=== PATIENT | male | born 1960 | race Caucasian/White ===

== ENCOUNTER 2017-10-11 13:58 | Emergency (ER) | payer OTHER ==
[~2017-10-11] VITALS: Ht 167.6 cm; Wt 65.9 kg
[~2017-10-11 13:58] MED LIST: ALBU0.63 NEB; AMLO5TAB2 PO; BP med PO; DICL75TA PO; VENTAER INH
[2017-10-11 14:07] VITALS: BP 179/102; PULSE 67; RESP 16; TEMP 98.7; O2SAT 94
--- NOTE | 2017-10-11 14:46 | RADRPT ---
EXAM DATE/TIME: 10/11/2017 14:33 [facility] COMPARISON: CHEST PA & LAT, July 06, 2015, 20:21. INDICATIONS : Short of breath. MEDICAL HISTORY : 2 Pulmonary embolisms, COPD, arthritis, kidney problems. SURGICAL HISTORY : None. ENCOUNTER: Initial ACUITY: 3 days PAIN SCORE: 8/10 LOCATION: Bilateral chest FINDINGS: PA and lateral views of the chest demonstrate the lungs to be symmetrically aerated without evidence of mass, infiltrate or effusion. The cardiomediastinal contours are unremarkable. Osseous structure s are intact. CONCLUSION: No acute disease. Jason Connor MD FACR on October 11, 2017 at 14:42 Board Certified Radiologist. This report was verified electronically.
[2017-10-11 15:06] LABS: AUTOMATED NEUTROPHIL # 2.9 TH/MM3 (1.8-7.7); BASOPHIL % 0.8 % (0.0-2.0); EOSINOPHIL # 0.1 TH/MM3 (0-0.4); EOSINOPHIL % 1.6 % (0.0-4.0); HEMOGLOBIN 17.5 GM/DL (13.0-17.0); LYMPH % 29.7 % (9.0-44.0); LYMPHOCYTE # 1.6 TH/MM3 (1.0-4.8); MEAN CELL VOLUME 94.8 FL (80.0-100.0); MEAN CORPUSCULAR HEMOGLOBIN 33.2 PG (27.0-34.0); MEAN PLATELET VOLUME 9.4 FL (7.0-11.0); MONO % 13.2 % (0.0-8.0); MONOCYTE # 0.7 TH/MM3 (0-0.9); NEUT % 54.7 % (16.0-70.0); PLATELET COUNT 159 TH/MM3 (150-450); RED BLOOD COUNT 5.27 MIL/MM3 (4.50-5.90); RED CELL DISTRIBUTION WIDTH 14.5 % (11.6-17.2); WHITE BLOOD COUNT 5.3 TH/MM3 (4.0-11.0)
[2017-10-11 15:09] LABS: BLOOD, URINE NEG (NEG); GLUCOSE,URINE NEG (NEG); KETONE, URINE TRACE mg/dL (NEG); MUCUS URINE MOD /lpf (OCC); NITRITE,URINE NEG (NEG); SQUAMOUS EPITHELIAL CELL URINE <1 /hpf (0-5); URINE LEUKOCYTE ESTERASE NEG (NEG)
[2017-10-11 15:11] LABS: URINE COLOR ORANGE (YELLW/STRAW)
[2017-10-11 15:12] LABS: BILIRUBIN, URINE NEG (NEG)
[2017-10-11 15:17] LABS: INTERNATIONAL NORMALIZED RATIO 1.1 RATIO; PROTHROMBIN TIME - PATIENT 11.1 SEC (9.8-11.6)
[2017-10-11 15:28] LABS: ALBUMIN 4.2 GM/DL (3.4-5.0); ALT (GPT) 426 U/L (12-78); AST (GOT) 322 U/L (15-37); BLOOD UREA NITROGEN 22 MG/DL (7-18); CHLORIDE 99 MEQ/L (98-107); CREATININE 1.51 MG/DL (0.60-1.30); GLOMERULAR FILTRATION RATE 48 ML/MIN (>89); GLUCOSE,RANDOM 107 MG/DL (74-106); LIPASE 143 U/L (73-393); SODIUM (NA) 135 MEQ/L (136-145)
[2017-10-11 15:32] LABS: ALKALINE PHOSPHATASE 182 U/L (45-117); TOTAL BILIRUBIN ADULT 2.7 MG/DL (0.2-1.0); TOTAL PROTEIN 8.5 GM/DL (6.4-8.2); TROPONIN I LESS THAN 0.02 NG/ML (0.02-0.05)
[2017-10-11] MEDS ORDERED: ASPI-516 CHEW (15:39)
[2017-10-11] MEDS ORDERED: PROZ40CA PO (15:39)
[2017-10-11] MEDS ORDERED: BUSP15TA PO (15:39)
[2017-10-11] MEDS ORDERED: AMLO10TA2 PO (15:39)
[2017-10-11] MEDS ORDERED: OMEP20TA93 PO (15:39)
[2017-10-11] MEDS ORDERED: GABA300C5 PO (15:39)
[2017-10-11 15:49] VITALS: BP 175/109; PULSE 60; RESP 20; O2SAT 98
[2017-10-11] MEDS ORDERED: PANT20TA2 PO (15:51)
--- NOTE | 2017-10-11 15:51 | PD ---
HPI Chief Complaint: Abdominal Pain Time Seen by Provider: 15:39 Travel History International Travel<30 days: No Contact w/Intl Traveler<30days: No Traveled to known affect area: No History of Present Illness HPI 57-year-old male with a history of COPD presents to emergency department complaining of back pain that started Monday. Patient states that this pain started Monday night and is located in the middle of his back near the lower thoracic upper lumbar region. Patient states that he has occasional sharp pain without radiation. States he has also had multiple episodes of nausea with nonbloody vomiting. He denies cardiac history but states that he thinks he has a kidney problem. Denies dysuria or hematuria. States that he had been drinking heavily up until Monday when he 'self detoxed'. States he had significant withdrawal symptoms to include tremors, nausea, vomiting. Patient says that he has a history of appendectomy but otherwise no abdominal surgeries. Patient has history of pulmonary embolism in 2016 which required treatment with Eliquis for 4 months. At this point he denies shortness of breath or chest pain. Denies significant abdominal pain. States he is noncompliant with [facility]. Says is he is currently homeless. PFSH Past Medical History Hx Anticoagulant Therapy: No Arthritis: No Asthma: No Autoimmune Disease: No Blood Disorders: No Anxiety: Yes Depression: No Heart Rhythm Problems: No Cancer: No Cardiovascular Problems: Yes (HTN) High Cholesterol: No Chemotherapy: No Chest Pain: No Congestive Heart Failure: No COPD: Yes Cerebrovascular Accident: Yes (TIA) Diabetes: No Diminished Hearing: No Endocrine: No GERD: No Glaucoma: No Genitourinary: No Headaches: No Hepatitis: No Hiatal Hernia: No Hypertension: Yes Immune Disorder: No Kidney Stones: No Musculoskeletal: No Neurologic: No Psychiatric: No Reproductive: No Respiratory: Yes (PE) Immunizations Current: No Migraines: No Myocardial Infarction: No Radiation Therapy: No Renal Failure: Yes Seizures: No Sickle Cell Disease: No Sleep Apnea: No Thyroid Disease: No Ulcer: No Influenza Vaccination: No Past Surgical History Abdominal Surgery: Yes (APPENDECTOMY) AICD: No Appendectomy: Yes Arteriovenous Shunt: No Cardiac Surgery: No Cholecystectomy: No Ear Surgery: No Endocrine Surgery: No Eye Surgery: No Genitourinary Surgery: No Gynecologic Surgery: No Insulin Pump: No Joint Replacement: No Oral Surgery: No Pacemaker: No Thoracic Surgery: No Other Surgery: Yes Social History Alcohol Use: Yes (DAILY, STATES LAST DRINK WAS 10/09/17) Tobacco Use: Yes (10/12 PPD) Substance Use: Yes (MARIJUANA OCCASIONALLY) Allergies-Medications (Allergen,Severity, Reaction): Coded Allergies: No Known Allergies (Verified Adverse Reaction, Unknown, 10/11/17) Reported Meds & Prescriptions Reported Meds & Active Scripts Active Reported Pantoprazole (Pantoprazole Sodium) 20 Mg Tab 20 Mg PO BID Aspirin 81 Mg Chew 81 Mg CHEW DAILY Prozac (Fluoxetine HCl) 40 Mg Cap 40 Mg PO DAILY Buspirone (Buspirone HCl) 15 Mg Tab 15 Mg PO TID Gabapentin 300 Mg Cap 300 Mg PO DAILY Amlodipine (Amlodipine Besylate) 10 Mg Tab 10 Mg PO DAILY Albuterol Neb (Albuterol Sulfate) 0.63 Mg/3 Ml Neb 0.63 Mg NEB Q6HR NEB PRN Ventolin Hfa 18 GM Inh (Albuterol Sulfate) 90 Mcg/Act Aer 2 Puff INH TID Review of Systems Except as stated in HPI: all other systems reviewed are Neg Physical Exam Narrative GENERAL: Well-nourished in no apparent distress, sitting comfortably in bed SKIN: Focused skin assessment warm/dry. HEAD: Atraumatic. Normocephalic. EYES: Pupils equal and round. No scleral icterus. No injection or drainage. ENT: No nasal bleeding or discharge. Mucous membranes pink and moist. NECK: Trachea midline. No JVD. No lymphadenopathy CARDIOVASCULAR: Regular rate and rhythm. No murmur appreciated. RESPIRATORY: No accessory muscle use. Clear to auscultation. Breath sounds equal bilaterally. GASTROINTESTINAL: Abdomen soft, non-tender, nondistended. Mildly TTP right upper abdomen MUSCULOSKELETAL: No obvious deformities. No clubbing. No cyanosis. No edema. Mild CVA tenderness bilateral, mild TTP to light touch as well NEUROLOGICAL: Awake and alert. No obvious cranial nerve deficits. Motor grossly within normal limits. Normal speech. PSYCHIATRIC: Appropriate mood and affect; insight and judgment normal. Data Data Last Documented VS Vital Signs Date Time Temp Pulse Resp B/P (MAP) Pulse Ox O2 Delivery O2 Flow Rate FiO2 10/11/17 17:23 10/11/17 15:49 60 20 98 Room Air 10/11/17 14:07 98.7 Orders Orders Complete Blood Count With Diff (10/11/17 14:22) Comprehensive Metabolic Panel (10/11/17 14:22) Lipase (10/11/17 14:22) Prothrombin Time / Inr (Pt) (10/11/17 14:22) Act Partial Throm Time (Ptt) (10/11/17 14:22) Urinalysis - C+S If Indicated (10/11/17 14:22) Electrocardiogram (10/11/17 14:22) Chest, Pa & Lat (10/11/17 ) Creatine Kinase (Cpk) (10/11/17 14:22) Troponin I (10/11/17 14:22) Alcohol (Ethanol) (10/11/17 14:22) Us Abdomen Gallbladder (10/11/17 ) Ed Discharge Order (10/11/17 17:16) Labs Laboratory Tests Test 10/11/17 14:29 10/11/17 14:41 Urine Color ORANGE Urine Turbidity CLEAR Urine pH 7.0 Urine Specific [place] 1.031 Urine Protein 30 mg/dL Urine Glucose (UA) NEG mg/dL Urine Ketones TRACE mg/dL Urine Occult Blood NEG Urine Nitrite NEG Urine Bilirubin NEG Urine Urobilinogen GREATER THAN 12.0 MG/DL Urine Leukocyte Esterase NEG Urine RBC 1 /hpf Urine WBC 1 /hpf Urine Squamous Epithelial Cells <1 /hpf Urine Mucus MOD /lpf Microscopic Urinalysis Comment CULT NOT INDICATED White Blood Count 5.3 TH/MM3 Red Blood Count 5.27 MIL/MM3 Hemoglobin 17.5 GM/DL Hematocrit 50.0 % Mean Corpuscular Volume 94.8 FL Mean Corpuscular Hemoglobin 33.2 PG Mean Corpuscular Hemoglobin Concent 35.0 % Red Cell Distribution Width 14.5 % Platelet Count 159 TH/MM3 Mean Platelet Volume 9.4 FL Neutrophils (%) (Auto) 54.7 % Lymphocytes (%) (Auto) 29.7 % Monocytes (%) (Auto) 13.2 % Eosinophils (%) (Auto) 1.6 % Basophils (%) (Auto) 0.8 % Neutrophils # (Auto) 2.9 TH/MM3 Lymphocytes # (Auto) 1.6 TH/MM3 Monocytes # (Auto) 0.7 TH/MM3 Eosinophils # (Auto) 0.1 TH/MM3 Basophils # (Auto) 0.0 TH/MM3 CBC Comment DIFF FINAL Differential Comment Prothrombin Time 11.1 SEC Prothromb Time International Ratio 1.1 RATIO Activated Partial Thromboplast Time 27.0 SEC Blood Urea Nitrogen 22 MG/DL Creatinine 1.51 MG/DL Random Glucose 107 MG/DL Total Protein 8.5 GM/DL Albumin 4.2 GM/DL Calcium Level 9.0 MG/DL Alkaline Phosphatase 182 U/L Aspartate Amino Transf (AST/SGOT) 322 U/L Alanine Aminotransferase (ALT/SGPT) 426 U/L Total Bilirubin 2.7 MG/DL Sodium Level 135 MEQ/L Potassium Level 3.8 MEQ/L Chloride Level 99 MEQ/L Carbon Dioxide Level 28.0 MEQ/L Anion Gap 8 MEQ/L Estimat Glomerular Filtration Rate 48 ML/MIN Total Creatine Kinase 110 U/L Troponin I LESS THAN 0.02 NG/ML Lipase 143 U/L Ethyl Alcohol Level LESS THAN 3 MG/DL MDM Medical Decision Making Medical Screen Exam Complete: Yes Emergency Medical Condition: Yes Differential Diagnosis Pyelonephritis, nephrolithiasis, pulmonary embolism, acute liver failure, hepatitis Narrative Course 57-year-old male with a history of COPD presents to emergency department complaining of back pain that started Monday. Patient states that this pain started Monday night and is located in the middle of his back near the lower thoracic upper lumbar region. Patient states that he has occasional sharp pain without radiation. States he has also had multiple episodes of nausea with nonbloody vomiting. He denies cardiac history but states that he thinks he has a kidney problem. Denies dysuria or hematuria. States that he had been drinking heavily up until Monday when he 'self detoxed'. States he had significant withdrawal symptoms to include tremors, nausea, vomiting. Patient says that he has a history of appendectomy but otherwise no abdominal surgeries. Patient has history of pulmonary embolism in 2016 which required treatment with Eliquis for 4 months. At this point he denies shortness of breath or chest pain. Denies significant abdominal pain. States he is noncompliant with medications that are [facility] by [facility]. Says is he is currently homeless. Vital Signs Date Time Temp Pulse Resp B/P (MAP) Pulse Ox O2 Delivery O2 Flow Rate FiO2 10/11/17 17:23 10/11/17 15:49 60 20 175/109 (131) 98 Room Air 10/11/17 14:07 98.7 67 16 179/102 (127) 94 Room Air CBC & BMP Diagram 10/11/17 14:41 Total Protein 8.5 H, Albumin 4.2, Calcium Level 9.0, Alkaline Phosphatase 182 H , Aspartate Amino Transf (AST/SGOT) 322 H, Alanine Aminotransferase (ALT/SGPT) 426 H, Total Bilirubin 2.7 H Last Impressions Gall Bladder Ultrasound 10/11/17 0000 Signed Impressions: Service Date/Time: Wednesday, October 11, 2017 16:10 - CONCLUSION: No gallstones. Nonobstructing 3 mm renal stone. Jason Connor MD FACR Chest X-Ray 10/11/17 0000 Signed Impressions: Service Date/Time: Wednesday, October 11, 2017 14:33 - CONCLUSION: No acute disease. Jason Connor MD FACR Patient states that he started drinking on Monday however, because of the lab results, I question his story. Patient demonstrates no acute process. I explained the likely diagnosis to patient. Because of the nausea he previously described, I suspect a muscle strain in the lower back. Patient will be discharged and advised to stop alcohol consumption to reduce his symptoms. Increase fluid intake. Advised to return to the ED for worsening or persistent symptoms. Diagnosis Primary Impression: Nephrolithiasis Additional Impression: Gastritis Qualified Codes: K29.20 - Alcoholic gastritis without bleeding Referrals: [facility] Additional Instructions: If your symptoms persist or worsen, return to the emergency department. Follow up with your PCP within 2-3 days. [facility]. Avoid alcohol as this will worsen your symptoms. Disposition: 01 DISCHARGE HOME Condition: Stable Lor Bello Oct 11, 2017 15:51
--- NOTE | 2017-10-11 16:45 | RADRPT ---
EXAM DATE/TIME: 10/11/2017 16:10 [facility] COMPARISON: No previous studies available for comparison. INDICATIONS : Nausea/Vomiting. MEDICAL HISTORY : Hypertension. Chronic obstructive pulmonary disease. Transient ischemic attack. Pulmonary embolism. Heartburn. Anxiety. Renal failure. SURGICAL HISTORY : Appendectomy. ENCOUNTER: Initial ACUITY: 3 days PAIN SCORE: 3/10 LOCATION: Right upper quadrant MEASUREMENTS: LIVER: 11.6 cm length COMMON DUCT: 5 mm RIGHT KIDNEY: 10.0 x 4.1 x 4.9 cm FINDINGS: LIVER: Normal echotexture without focal lesion or ductal dilatation. COMMON DUCT: No intraluminal mass or stone visualized. GALLBLADDER: Contains no stones, demonstrates no wall thickening or pericholecystic fluid. PANCREAS: The visualized portions are within normal limits. RIGHT KIDNEY: 3 mm stone without obstruction. CONCLUSION: No gallstones. Nonobstructing 3 mm renal stone. Jason Connor MD FACR on October 11, 2017 at 16:42 Board Certified Radiologist. This report was verified electronically.
--- NOTE | 2017-10-11 19:22 | PD ---
Data Data Last Documented VS Vital Signs Date Time Temp Pulse Resp B/P (MAP) Pulse Ox O2 Delivery O2 Flow Rate FiO2 10/11/17 17:23 10/11/17 15:49 60 20 98 Room Air 10/11/17 14:07 98.7 Orders Orders Complete Blood Count With Diff (10/11/17 14:22) Comprehensive Metabolic Panel (10/11/17 14:22) Lipase (10/11/17 14:22) Prothrombin Time / Inr (Pt) (10/11/17 14:22) Act Partial Throm Time (Ptt) (10/11/17 14:22) Urinalysis - C+S If Indicated (10/11/17 14:22) Electrocardiogram (10/11/17 14:22) Chest, Pa & Lat (10/11/17 ) Creatine Kinase (Cpk) (10/11/17 14:22) Troponin I (10/11/17 14:22) Alcohol (Ethanol) (10/11/17 14:22) Us Abdomen Gallbladder (10/11/17 ) Ed Discharge Order (10/11/17 17:16) Labs Laboratory Tests Test 10/11/17 14:29 10/11/17 14:41 Urine Color ORANGE Urine Turbidity CLEAR Urine pH 7.0 Urine Specific [place] 1.031 Urine Protein 30 mg/dL Urine Glucose (UA) NEG mg/dL Urine Ketones TRACE mg/dL Urine Occult Blood NEG Urine Nitrite NEG Urine Bilirubin NEG Urine Urobilinogen GREATER THAN 12.0 MG/DL Urine Leukocyte Esterase NEG Urine RBC 1 /hpf Urine WBC 1 /hpf Urine Squamous Epithelial Cells <1 /hpf Urine Mucus MOD /lpf Microscopic Urinalysis Comment CULT NOT INDICATED White Blood Count 5.3 TH/MM3 Red Blood Count 5.27 MIL/MM3 Hemoglobin 17.5 GM/DL Hematocrit 50.0 % Mean Corpuscular Volume 94.8 FL Mean Corpuscular Hemoglobin 33.2 PG Mean Corpuscular Hemoglobin Concent 35.0 % Red Cell Distribution Width 14.5 % Platelet Count 159 TH/MM3 Mean Platelet Volume 9.4 FL Neutrophils (%) (Auto) 54.7 % Lymphocytes (%) (Auto) 29.7 % Monocytes (%) (Auto) 13.2 % Eosinophils (%) (Auto) 1.6 % Basophils (%) (Auto) 0.8 % Neutrophils # (Auto) 2.9 TH/MM3 Lymphocytes # (Auto) 1.6 TH/MM3 Monocytes # (Auto) 0.7 TH/MM3 Eosinophils # (Auto) 0.1 TH/MM3 Basophils # (Auto) 0.0 TH/MM3 CBC Comment DIFF FINAL Differential Comment Prothrombin Time 11.1 SEC Prothromb Time International Ratio 1.1 RATIO Activated Partial Thromboplast Time 27.0 SEC Blood Urea Nitrogen 22 MG/DL Creatinine 1.51 MG/DL Random Glucose 107 MG/DL Total Protein 8.5 GM/DL Albumin 4.2 GM/DL Calcium Level 9.0 MG/DL Alkaline Phosphatase 182 U/L Aspartate Amino Transf (AST/SGOT) 322 U/L Alanine Aminotransferase (ALT/SGPT) 426 U/L Total Bilirubin 2.7 MG/DL Sodium Level 135 MEQ/L Potassium Level 3.8 MEQ/L Chloride Level 99 MEQ/L Carbon Dioxide Level 28.0 MEQ/L Anion Gap 8 MEQ/L Estimat Glomerular Filtration Rate 48 ML/MIN Total Creatine Kinase 110 U/L Troponin I LESS THAN 0.02 NG/ML Lipase 143 U/L Ethyl Alcohol Level LESS THAN 3 MG/DL MDM Supervised Visit with [place]: Yes Narrative Course The history, exam, and medical decision-making in the associated mid-level provider note were completed with my assistance. I reviewed and agree with the findings presented. I attest that I had a [id number] encounter with the patient on the same day, and personally performed and documented my assessment and findings in the medical record. *My assessment and Findings: 57-year-old man, abdominal pain, history of alcoholic daily on-call use, quit 3 days ago. He with abdominal pain. Looks well. Liver enzymes are more elevated. Right upper quadrant ultrasounds overall unremarkable. Likely alcoholic hepatitis. Looks otherwise well. Recommend supportive treatment. Diagnosis Primary Impression: Nephrolithiasis Additional Impression: Gastritis Referrals: [facility] Patient Instructions: General Instructions, Gastritis (ED), Flank Pain (ED) Departure Forms: Tests/Procedures Additional Instruction: If your symptoms persist or worsen, return to the emergency department. Follow up with your PCP within 2-3 days. [facility]. Avoid alcohol as this will worsen your symptoms. Disposition: 01 DISCHARGE HOME Condition: Stable Ethan Ruiz MD Oct 11, 2017 19:22
--- NOTE | 2017-10-13 23:49 | EKG ---
Date Performed: 10/11/2017 Time Performed: 15:32:20 PTAGE: 57 years EKG: Sinus rhythm SEPTAL MYOCARDIAL INFARCTION ABNORMAL ECG PREVIOUS TRACING : 09/14/2016 14.21 DOCTOR: Emilie Tate Interpretating Date/Time 10/13/2017 23:48:16
== END 2017-10-11 17:24 | disposition home or self-care (01) ==
LOC: NEPC 13:58
DX: N20.0 Calculus of kidney (principal); K29.70 Gastritis, unspecified, without bleeding; R94.31 Abnormal electrocardiogram [ECG] [EKG]; R11.2 Nausea with vomiting, unspecified; I10 Essential (primary) hypertension; J44.9 Chronic obstructive pulmonary disease, unspecified; Z86.73 Personal history of transient ischemic attack (TIA), and cerebral infarction without residual deficits; Z72.0 Tobacco use
CPT/HCPCS: 71046; 76705; 80053; 80307; 81001; 82550; 83690; 84484; 85025; 85610; 85730; 93005

== ENCOUNTER 2017-11-28 15:42 | Inpatient (IN) | payer OTHER ==
[2017-11-28] VITALS (7 sets, daily range): BP systolic 18–198; BP diastolic 81–111; PULSE 64–76; RESP 16–20; TEMP 98–98.4; O2SAT 96–98
[~2017-11-28] VITALS: Ht 167.6 cm; Wt 66.3 kg
[~2017-11-28 15:42] MED LIST changes: +AMLO10TA2 PO; -AMLO5TAB2 PO; +ASPI-516 CHEW; -BP med PO; +BUSP15TA PO; -DICL75TA PO; +GABA300C5 PO; +PANT20TA2 PO; +PROZ40CA PO
--- NOTE | 2017-11-28 15:58 | PD ---
HPI Chief Complaint: Hypertension Time Seen by Provider: 15:54 Travel History International Travel<30 days: No Contact w/Intl Traveler<30days: No Traveled to known affect area: No History of Present Illness HPI 57-year-old male patient with history of hypertension, PE, presents to the ER today because he states that he has not taken his blood pressure medications in several days, and states that [facility] to [facility] today, and they took a routine blood pressure and found that it was elevated. He states that he did have an episode of palpitations and chest discomfort lasting several minutes earlier today but it went away on its own. He denies any chest pains, shortness of breath, or any other issues. He thinks that the [facility] overreact[facility]. Modifying Factors: None Associated Signs & Symptoms: Elevated blood pressure Risk Factors: hypertension, not taking meds PFSH Past Medical History Hx Anticoagulant Therapy: No Arthritis: No Asthma: No Autoimmune Disease: No Blood Disorders: No Anxiety: Yes Depression: Yes Heart Rhythm Problems: No Cancer: No Cardiovascular Problems: Yes High Cholesterol: No Chemotherapy: No Chest Pain: No Congestive Heart Failure: No COPD: Yes Cerebrovascular Accident: Yes (TIA) Diabetes: No Diminished Hearing: No Endocrine: No GERD: No Glaucoma: No Genitourinary: No Headaches: No Hepatitis: No Hiatal Hernia: No Hypertension: Yes Immune Disorder: No Kidney Stones: No Musculoskeletal: No Neurologic: No Psychiatric: No Reproductive: No Respiratory: Yes (PE) Immunizations Current: No Migraines: No Myocardial Infarction: No Radiation Therapy: No Renal Failure: Yes Seizures: No Sickle Cell Disease: No Sleep Apnea: No Thyroid Disease: No Ulcer: No Influenza Vaccination: No ?: Not Past Surgical History Abdominal Surgery: Yes (APPENDECTOMY) AICD: No Appendectomy: Yes Arteriovenous Shunt: No Cardiac Surgery: No Cholecystectomy: No Ear Surgery: No Endocrine Surgery: No Eye Surgery: No Genitourinary Surgery: No Gynecologic Surgery: No Insulin Pump: No Joint Replacement: No Oral Surgery: No Pacemaker: No Thoracic Surgery: No Other Surgery: Yes Social History Alcohol Use: Yes (DAILY, STATES LAST DRINK WAS 10/09/17) Tobacco Use: Yes (10/12 PPD) Substance Use: Yes (MARIJUANA OCCASIONALLY) Allergies-Medications (Allergen,Severity, Reaction): Coded Allergies: No Known Allergies (Verified Adverse Reaction, Unknown, 11/28/17) Reported Meds & Prescriptions Reported Meds & Active Scripts Active Reported Pantoprazole (Pantoprazole Sodium) 20 Mg Tab 20 Mg PO BID Aspirin 81 Mg Chew 81 Mg CHEW DAILY Buspirone (Buspirone HCl) 15 Mg Tab 15 Mg PO TID Amlodipine (Amlodipine Besylate) 10 Mg Tab 10 Mg PO DAILY Albuterol Neb (Albuterol Sulfate) 0.63 Mg/3 Ml Neb 0.63 Mg NEB Q6HR NEB PRN Ventolin Hfa 18 GM Inh (Albuterol Sulfate) 90 Mcg/Act Aer 2 Puff INH TID Review of Systems Except as stated in HPI: all other systems reviewed are Neg Physical Exam Narrative GENERAL: Well-developed middle-age male patient currently in mild distress. Awake and oriented 3. SKIN: Focused skin assessment warm/dry. HEAD: Atraumatic. Normocephalic. EYES: Pupils equal and round. No scleral icterus. No injection or drainage. ENT: No nasal bleeding or discharge. Mucous membranes pink and moist. NECK: Trachea midline. No JVD. CARDIOVASCULAR: Regular rate and rhythm. No murmur appreciated. RESPIRATORY: No accessory muscle use. Clear to auscultation. Breath sounds equal bilaterally. GASTROINTESTINAL: Abdomen soft, non-tender, nondistended. Hepatic and splenic margins not palpable. MUSCULOSKELETAL: No obvious deformities. No clubbing. No cyanosis. No edema. NEUROLOGICAL: Awake and alert. No obvious cranial nerve deficits. Motor grossly within normal limits. Normal speech. PSYCHIATRIC: Appropriate mood and affect; insight and judgment normal. Data Data Last Documented VS Vital Signs Date Time Temp Pulse Resp B/P (MAP) Pulse Ox O2 Delivery O2 Flow Rate FiO2 11/28/17 16:50 70 18 189/111 (137) 97 Room Air 11/28/17 15:45 98.4 Orders Orders Electrocardiogram (11/28/17 15:54) Basic Metabolic Panel (Bmp) (11/28/17 15:54) Ckmb (Isoenzyme) Profile (11/28/17 15:54) Complete Blood Count With Diff (11/28/17 15:54) Magnesium (Mg) (11/28/17 15:54) Prothrombin Time / Inr (Pt) (11/28/17 15:54) Act Partial Throm Time (Ptt) (11/28/17 15:54) Troponin I (11/28/17 15:54) Chest, Single Ap (11/28/17 15:54) Ecg Monitoring (11/28/17 15:54) Bilateral Bp Monitoring (11/28/17 15:54) Iv Access Insert/Monitor (11/28/17 15:54) Oximetry (11/28/17 15:54) Oxygen Administration (11/28/17 15:54) Sodium Chloride 0.9% Flush (Ns Flush) (11/28/17 16:00) Amlodipine (Norvasc) (11/28/17 16:00) CKMB (11/28/17 16:05) CKMB% (11/28/17 16:05) Clonidine (Catapres) (11/28/17 17:15) Labs Laboratory Tests Test 11/28/17 16:05 White Blood Count 7.0 TH/MM3 Red Blood Count 4.41 MIL/MM3 Hemoglobin 14.5 GM/DL Hematocrit 43.2 % Mean Corpuscular Volume 97.9 FL Mean Corpuscular Hemoglobin 33.0 PG Mean Corpuscular Hemoglobin Concent 33.7 % Red Cell Distribution Width 13.1 % Platelet Count 227 TH/MM3 Mean Platelet Volume 8.3 FL Neutrophils (%) (Auto) 65.3 % Lymphocytes (%) (Auto) 21.3 % Monocytes (%) (Auto) 9.7 % Eosinophils (%) (Auto) 1.8 % Basophils (%) (Auto) 1.9 % Neutrophils # (Auto) 4.6 TH/MM3 Lymphocytes # (Auto) 1.5 TH/MM3 Monocytes # (Auto) 0.7 TH/MM3 Eosinophils # (Auto) 0.1 TH/MM3 Basophils # (Auto) 0.1 TH/MM3 CBC Comment DIFF FINAL Differential Comment Prothrombin Time 10.9 SEC Prothromb Time International Ratio 1.1 RATIO Activated Partial Thromboplast Time 25.9 SEC Blood Urea Nitrogen 19 MG/DL Creatinine 0.90 MG/DL Random Glucose 96 MG/DL Calcium Level 8.8 MG/DL Magnesium Level 2.4 MG/DL Sodium Level 135 MEQ/L Potassium Level 4.0 MEQ/L Chloride Level 104 MEQ/L Carbon Dioxide Level 24.3 MEQ/L Anion Gap 7 MEQ/L Estimat Glomerular Filtration Rate 88 ML/MIN Total Creatine Kinase 132 U/L Creatine Kinase MB 1.7 NG/ML Troponin I LESS THAN 0.02 NG/ML MDM Medical Decision Making Medical Screen Exam Complete: Yes Emergency Medical Condition: Yes Medical Record Reviewed: Yes Interpretation(s) EKG shows NSR, no ST elevation or depression, and no arrhythmias. No significant T-wave inversions. Laboratory Tests Test 11/28/17 16:05 Red Blood Count 4.41 MIL/MM3 (4.50-5.90) Monocytes (%) (Auto) 9.7 % (0.0-8.0) Blood Urea Nitrogen 19 MG/DL (7-18) Sodium Level 135 MEQ/L (136-145) Estimat Glomerular Filtration Rate 88 ML/MIN (>89) Troponin I LESS THAN 0.02 NG/ML Differential Diagnosis Hypertension: Chronic hypertension versus hypertensive urgency versus anxiety attack versus ACS Narrative Course Patient was given Norvasc in the ER. However, on reevaluation an hour later, the blood pressure is essentially unchanged. He was given clonidine in the ER as well. Lab work did not show any signs of significant metabolic issues or cardiac enzyme elevations. EKG did not show any signs of acute EKG changes. Patient is currently fairly asymptomatic. However, I am concerned about his chest pain episode this morning, patient needs better blood pressure control and my plan will be to admit him for further treatment of blood pressure. Case has been discussed with Dr. Monteiro for admission. It is agreed that the patient would be best off in intermediate ICU care for IV blood pressure control. Diagnosis Primary Impression: Hypertension Additional Impression: Chest pain Admitting Information Admitting Physician Requests: Admit Kody Montenegro MD Nov 28, 2017 15:58
[2017-11-28] MEDS ORDERED: SODIUM CHLORIDE 0.9% FLUSH 10 ML FLUSH IVF PRN (16:00)
[2017-11-28 16:12] LABS: AUTOMATED NEUTROPHIL # 4.6 TH/MM3 (1.8-7.7); BASOPHIL # 0.1 TH/MM3 (0-0.2); BASOPHIL % 1.9 % (0.0-2.0); EOSINOPHIL # 0.1 TH/MM3 (0-0.4); EOSINOPHIL % 1.8 % (0.0-4.0); HEMATOCRIT 43.2 % (39.0-51.0); HEMOGLOBIN 14.5 GM/DL (13.0-17.0); LYMPH % 21.3 % (9.0-44.0); LYMPHOCYTE # 1.5 TH/MM3 (1.0-4.8); MEAN CELL VOLUME 97.9 FL (80.0-100.0); MEAN CORPUSCULAR HGB CONC 33.7 % (32.0-36.0); MEAN PLATELET VOLUME 8.3 FL (7.0-11.0); MONO % 9.7 % (0.0-8.0); MONOCYTE # 0.7 TH/MM3 (0-0.9); NEUT % 65.3 % (16.0-70.0); PLATELET COUNT 227 TH/MM3 (150-450); RED BLOOD COUNT 4.41 MIL/MM3 (4.50-5.90); RED CELL DISTRIBUTION WIDTH 13.1 % (11.6-17.2)
[2017-11-28 16:21] LABS: CHLORIDE 104 MEQ/L (98-107); SODIUM (NA) 135 MEQ/L (136-145)
[2017-11-28 16:23] LABS: CALCIUM 8.8 MG/DL (8.5-10.1)
[2017-11-28 16:24] LABS: BICARBONATE 24.3 MEQ/L (21.0-32.0); BLOOD UREA NITROGEN 19 MG/DL (7-18); GLUCOSE,RANDOM 96 MG/DL (74-106); MAGNESIUM 2.4 MG/DL (1.5-2.5)
[2017-11-28 16:25] LABS: INTERNATIONAL NORMALIZED RATIO 1.1 RATIO; PROTHROMBIN TIME - PATIENT 10.9 SEC (9.8-11.6)
[2017-11-28 16:27] LABS: GLOMERULAR FILTRATION RATE 88 ML/MIN (>89)
[2017-11-28 16:32] LABS: TROPONIN I LESS THAN 0.02 NG/ML (0.02-0.05)
[2017-11-28] MEDS ORDERED: cloNIDine HCL 0.2 MG TAB PO ONE (17:15)
--- NOTE | 2017-11-28 17:16 | RADRPT ---
EXAM DATE/TIME: 11/28/2017 16:31 [place] COMPARISON: CT THORAX W CONTRAST, August 11, 2016, 15:32. CHEST SINGLE AP, August 11, 2016, 14:13. INDICATIONS : High blood pressure. MEDICAL HISTORY : Hypertension. Chronic obstructive pulmonary disease. Transient ischemic attack. Hypertension. Chronic obstructive pulmonary disease. Transient ischemic attack. Renal failure. SURGICAL HISTORY : Appendectomy. ENCOUNTER: Initial ACUITY: 1 day PAIN SCORE: 2/10 LOCATION: Bilateral chest FINDINGS: A single view of the chest demonstrates the lungs to be symmetrically aerated without evidence of mas s, infiltrate or effusion. The cardiomediastinal contours are unremarkable. There is a displaced fr acture of the midshaft of the right clavicle with one shaft with superior displacement of medial frac ture fragment. A nondisplaced right clavicular fracture was noted on prior CT thorax August 2016.. CONCLUSION: 1. The lungs are clear. 2. Displaced fracture mid shaft right clavicle, age-indeterminate. Dereck Bella MD on November 28, 2017 at 17:13 Board Certified Radiologist. This report was verified electronically.
[2017-11-28] MEDS ORDERED: ACETAMINOPHEN 325 MG TAB PO PRN (18:15)
[2017-11-28] MEDS ORDERED: NALOXONE HCL 0.4 MG/ML AMP IV PUSH PRN (18:15)
[2017-11-28] MEDS ORDERED: SODIUM CHLORIDE 0.9% FLUSH 10 ML FLUSH IV FLUSH PRN (18:15)
[2017-11-28] MEDS ORDERED: ONDANSETRON HCL 4 MG/2 ML VIAL IVP PRN (18:15)
[2017-11-28] MEDS ORDERED: RESP: ALBUTEROL 0.63 MG/3 ML NEB (PRN) NEB (18:15)
[2017-11-28] MEDS ORDERED: SENNOSIDES 8.6 MG TAB PO PRN (18:15)
[2017-11-28] MEDS ORDERED: niCARdipine INJ 25 MG in SODIUM CHLOR 0.9% 250 ML INJ 250 ML IV PRN (18:15)
[2017-11-28] MEDS: PANTOPRAZOLE SOD 20 MG DELAYED RELEASE TAB PO SCH (22:23)
[2017-11-28] MEDS: SODIUM CHLORIDE 0.9% FLUSH 10 ML FLUSH IV FLUSH SCH (22:26)
[2017-11-29] VITALS (7 sets, daily range): BP systolic 136–170; BP diastolic 77–95; PULSE 52–62; RESP 14–21; TEMP 97.6–98.5; O2SAT 96–98
[2017-11-29 05:02] LABS: AUTOMATED NEUTROPHIL # 2.8 TH/MM3 (1.8-7.7); BASOPHIL % 0.6 % (0.0-2.0); EOSINOPHIL # 0.2 TH/MM3 (0-0.4); EOSINOPHIL % 3.2 % (0.0-4.0); HEMATOCRIT 38.3 % (39.0-51.0); HEMOGLOBIN 13.5 GM/DL (13.0-17.0); LYMPHOCYTE # 1.4 TH/MM3 (1.0-4.8); MEAN CELL VOLUME 96.6 FL (80.0-100.0); MEAN CORPUSCULAR HEMOGLOBIN 34.1 PG (27.0-34.0); MEAN CORPUSCULAR HGB CONC 35.3 % (32.0-36.0); MEAN PLATELET VOLUME 8.9 FL (7.0-11.0); MONO % 12.9 % (0.0-8.0); MONOCYTE # 0.7 TH/MM3 (0-0.9); NEUT % 55.3 % (16.0-70.0); PLATELET COUNT 155 TH/MM3 (150-450); RED BLOOD COUNT 3.96 MIL/MM3 (4.50-5.90); RED CELL DISTRIBUTION WIDTH 13.6 % (11.6-17.2); WHITE BLOOD COUNT 5.1 TH/MM3 (4.0-11.0)
[2017-11-29 05:08] LABS: CALCIUM 8.7 MG/DL (8.5-10.1)
[2017-11-29 05:12] LABS: CREATININE 0.89 MG/DL (0.60-1.30)
[2017-11-29] MEDS ORDERED: cloNIDine HCL 0.1 MG TAB PO PRN (08:00)
[2017-11-29] MEDS: PANTOPRAZOLE SOD 20 MG DELAYED RELEASE TAB PO SCH ×2 (08:02→21:37)
[2017-11-29] MEDS: ASPIRIN 81 MG CHEW TAB CHEW SCH (08:02)
[2017-11-29] MEDS: busPIRone HCL 5 MG TAB PO SCH ×3 (08:02→17:40)
[2017-11-29] MEDS: SODIUM CHLORIDE 0.9% FLUSH 10 ML FLUSH IV FLUSH SCH ×2 (08:05→21:37)
[2017-11-29] MEDS: ALBUTEROL SULFATE 90 MCG/ACT HFA 8 GM INHALER INH SCH ×3 (09:00→17:40)
--- NOTE | 2017-11-29 12:22 | HHI.HP ---
[facility] Primary [facility] Physician [facility] Admission Diagnosis Hypertensive urgency/chest pain Diagnoses: (1) Hypertension Diagnosis: Principal Chief Complaint: Hypertension Travel History International Travel<30 Days: No Contact w/Intl Traveler <30 Da: No Traveled to Known Affected Are: No History of Present Illness This is a pleasant 57-year-old male patient with a known medical history of hypertension and COPD who presented to the ED with complaints of high blood pressure. Patient states that [facility] came to his house, took a routine blood pressure and found that it is systolic blood pressure was over 200 and immediately sent to the ED. Patient states he has been noncompliant with his medicines and actually ran out several days ago. Does complain of associated dizziness and "overall fogginess" and nausea and vomiting for the past several days. Does admit to new life stressors as well and has not "prioritized his health". Denies any recent illness including fever, chills, headache, shortness of breath, abdominal pain, nausea, vomiting, diarrhea or dysuria. Patient does admit undergoing cardiac evaluation last year [facility] the [facility] with an [facility]ogram. Patient states the [facility] has changed his medicines frequently over the past few years. Does admit to daily tobacco use. Has a history of PE last year was on Eliquis for 5 months and stopped by the [facility]. Denies any chest pain, does state he has intermittent tightness when his blood pressure is elevated. Review of Systems Constitutional: COMPLAINS OF: Fatigue, DENIES: Fever, Chills Endocrine: DENIES: Heat/cold intolerance Eyes: COMPLAINS OF: Blurred vision Respiratory: DENIES: Cough, Sputum production, Shortness of breath Cardiovascular: COMPLAINS OF: Chest pain, Palpitations, DENIES: Lower Extremity Edema Gastrointestinal: DENIES: Abdominal pain Integumentary: DENIES: Abnormal pigmentation Hematologic/lymphatic: DENIES: Bruising Immunologic/allergic: DENIES: Eczema Neurologic: DENIES: Abnormal gait Psychiatric: COMPLAINS OF: Anxiety Except as stated in HPI: all other systems reviewed are Neg Past Family Social History Past Medical History Tobacco abuse Anxiety Depression COPD Hypertension History of TIA History of PE Past Surgical History Appendectomy Left foot surgery Reported Medications Active Reported Pantoprazole (Pantoprazole Sodium) 20 Mg Tab 20 Mg PO BID Aspirin 81 Mg Chew 81 Mg CHEW DAILY Buspirone (Buspirone HCl) 15 Mg Tab 15 Mg PO TID Amlodipine (Amlodipine Besylate) 10 Mg Tab 10 Mg PO DAILY Albuterol Neb (Albuterol Sulfate) 0.63 Mg/3 Ml Neb 0.63 Mg NEB Q6HR NEB PRN Ventolin Hfa 18 GM Inh (Albuterol Sulfate) 90 Mcg/Act Aer 2 Puff INH TID Allergies: Coded Allergies: No Known Allergies (Verified Adverse Reaction, Unknown, 11/28/17) Active Ordered Medications Current Medications Medications (Trade) Dose Ordered Sig/Fany Route Start Time Stop Time Status Last Admin (NS Flush) 2 ml UNSCH PRN IV FLUSH 11/28/17 18:15 (NS Flush) 2 ml BID IV FLUSH 11/28/17 21:00 11/29/17 08:05 (Tylenol) 650 mg Q4H PRN PO 11/28/17 18:15 (Zofran Inj) 4 mg Q6H PRN IVP 11/28/17 18:15 (Narcan Inj) 0.4 mg UNSCH PRN IV PUSH 11/28/17 18:15 (Senokot) 17.2 mg Q12H PRN PO 11/28/17 18:15 (Proair Hfa Inh) 2 puff TID INH 11/29/17 09:00 11/29/17 12:08 (Albuterol Neb) 0.63 mg Q6HR NEB PRN NEB 11/28/17 18:15 (Buspar) 15 mg TID PO 11/29/17 09:00 11/29/17 12:08 (Protonix) 20 mg BID PO 11/28/17 21:00 11/29/17 08:02 (Norvasc) 10 mg DAILY PO 11/29/17 09:00 11/29/17 08:04 (Aspirin Chew) 81 mg DAILY CHEW 11/29/17 09:00 11/29/17 08:02 (Catapres) 0.1 mg Q6H PRN PO 11/29/17 08:00 11/29/17 12:08 Family History Father with significant cardiovascular disease history. Mother with end-stage colon cancer. Social History Patient states he smokes 2 cigarettes a day. Drinks 2 alcoholic beverages a month. Admits to occasional marijuana use. Physical Exam Vital Signs Vital Signs Date Time Temp Pulse Resp B/P (MAP) Pulse Ox O2 Delivery O2 Flow Rate FiO2 11/29/17 08:32 57 11/29/17 08:00 97.9 52 16 149/95 (113) 98 11/29/17 04:00 97.6 60 14 158/87 (110) 97 11/29/17 04:00 52 11/29/17 00:00 62 11/29/17 00:00 56 16 96 11/28/17 23:25 98.0 64 16 143/82 (102) 96 11/28/17 20:00 98.0 70 20 18/81 (60) 97 11/28/17 20:00 70 11/28/17 18:29 76 18 172/96 (121) 97 11/28/17 18:18 76 11/28/17 18:17 76 18 180/110 (133) 11/28/17 16:50 70 18 189/111 (137) 97 Room Air 11/28/17 16:10 70 18 198/109 (138) 98 Room Air 11/28/17 16:09 98 Room Air 11/28/17 15:50 70 11/28/17 15:45 98.4 71 18 191/102 (131) 98 Physical Exam GENERAL: Well-developed, well-nourished patient in [facility]. SKIN: Warm and dry. No rash. HEAD: Normocephalic. Atraumatic. EYES: Pupils equal and round. No scleral icterus. No injection or drainage. ENT: No nasal bleeding or discharge. Mucous membranes pink and moist. NECK: Supple. Trachea midline. CARDIOVASCULAR: Regular rate and rhythm. S1, S2 noted. No murmur appreciated. No reproducible chest pain to palpation. RESPIRATORY: No accessory muscle use. Clear to auscultation. Breath sounds equal bilaterally. GASTROINTESTINAL: Abdomen soft, non-tender, nondistended. Normoactive bowel sounds x4. MUSCULOSKELETAL: No obvious deformities. Extremities without clubbing, cyanosis , or edema. NEUROLOGICAL: Awake and alert. No obvious cranial nerve deficits. Motor grossly within normal limits. 5/5 muscle strength in bilateral upper and lower extremities. Normal speech. PSYCHIATRIC: Appropriate mood and affect; insight and judgment normal. Laboratory Laboratory Tests Test 11/28/17 16:05 11/29/17 04:00 White Blood Count 7.0 5.1 Red Blood Count 4.41 3.96 Hemoglobin 14.5 13.5 Hematocrit 43.2 38.3 Mean Corpuscular Volume 97.9 96.6 Mean Corpuscular Hemoglobin 33.0 34.1 Mean Corpuscular Hemoglobin Concent 33.7 35.3 Red Cell Distribution Width 13.1 13.6 Platelet Count 227 155 Mean Platelet Volume 8.3 8.9 Neutrophils (%) (Auto) 65.3 55.3 Lymphocytes (%) (Auto) 21.3 28.0 Monocytes (%) (Auto) 9.7 12.9 Eosinophils (%) (Auto) 1.8 3.2 Basophils (%) (Auto) 1.9 0.6 Neutrophils # (Auto) 4.6 2.8 Lymphocytes # (Auto) 1.5 1.4 Monocytes # (Auto) 0.7 0.7 Eosinophils # (Auto) 0.1 0.2 Basophils # (Auto) 0.1 0.0 CBC Comment DIFF FINAL DIFF FINAL Differential Comment Prothrombin Time 10.9 Prothromb Time International Ratio 1.1 Activated Partial Thromboplast Time 25.9 Blood Urea Nitrogen 19 17 Creatinine 0.90 0.89 Random Glucose 96 111 Calcium Level 8.8 8.7 Magnesium Level 2.4 Sodium Level 135 137 Potassium Level 4.0 3.7 Chloride Level 104 101 Carbon Dioxide Level 24.3 28.0 Anion Gap 7 8 Estimat Glomerular Filtration Rate 88 89 Total Creatine Kinase 132 Creatine Kinase MB 1.7 Troponin I LESS THAN 0.02 Result Diagram: 11/29/17 0400 11/29/17 0400 Imaging Last Impressions Chest X-Ray 11/28/17 1554 Signed Impressions: Service Date/Time: Tuesday, November 28, 2017 16:31 - CONCLUSION: 1. The lungs are clear. 2. Displaced fracture mid shaft right clavicle, age-indeterminate. Dereck Bella MD Septic Shock Reassessment Septic shock perfusion: reassessment completed Caprini VTE Risk Assessment Caprini VTE Risk Assessment: No/Low Risk (score <= 1) Caprini Risk Assessment Model Point Value = 1 Point Value = 2 Point Value = 3 Point Value = 5 Age 41-60 Minor surgery BMI > 25 kg/m2 Swollen legs Varicose veins or History of unexplained or recurrent spontaneous Oral contraceptives or hormone replacement Sepsis (< 1 month) Serious lung disease, including pneumonia (< 1 month) Abnormal pulmonary function Acute myocardial infarction Congestive heart failure (< 1 month) History of inflammatory bowel disease Medical patient at bed rest Age 61-74 Arthroscopic surgery Major open surgery (> 45 min) Laparoscopic surgery (> 45 min) Malignancy Confined to bed (> 72 hours) Immobilizing plaster cast Central venous access Age >= 75 History of VTE Family history of VTE Factor V Leiden Prothrombin [id number] Lupus anticoagulant Anticardiolipin antibodies Elevated serum homocysteine Heparin-induced thrombocytopenia Other congenital or acquired thrombophilia Stroke (< 1 month) Elective arthroplasty Hip, pelvis, or leg fracture Acute spinal cord injury (< 1 month) Prophylaxis Regimen Total Risk Factor Score Risk Level Prophylaxis Regimen 0-1 Low Early ambulation 2 Moderate Order ONE of the following: *Sequential Compression Device (SCD) *Heparin 5000 units SQ BID 3-4 Higher Order ONE of the following medications: *Heparin 5000 units SQ TID *Enoxaparin/Lovenox 40 mg SQ daily (WT < 150 kg, CrCl > 30 mL/min) *Enoxaparin/Lovenox 30 mg SQ daily (WT < 150 kg, CrCl > 10-29 mL/min) *Enoxaparin/Lovenox 30 mg SQ BID (WT < 150 kg, CrCl > 30 mL/min) AND/OR *Sequential Compression Device (SCD) 5 or more Highest Order ONE of the following medications: *Heparin 5000 units SQ TID (Preferred with Epidurals) *Enoxaparin/Lovenox 40 mg SQ daily (WT < 150 kg, CrCl > 30 mL/min) *Enoxaparin/Lovenox 30 mg SQ daily (WT < 150 kg, CrCl > 10-29 mL/min) *Enoxaparin/Lovenox 30 mg SQ BID (WT < 150 kg, CrCl > 30 mL/min) AND *Sequential Compression Device (SCD) Assessment and Plan Assessment and Plan This is a pleasant 57-year-old male patient with a known medical history of hypertension and COPD who presented to the ED with complaints of high blood pressure. Hypertensive crisis secondary to medication noncompliance Hypertension, chronic Patient states he has been noncompliant with medications and ran out at home. Presented with systolic BP in the 180s. Was given PO medications in the ED and transferred to the ICU for closer monitoring. Cardene drip was ordered but never started, hypertension resolved with p.o. medicines. Restarted home Norvasc 10 mg daily. Will add VOLODYMYR inhibitor, lisinopril 10 mg daily. BP more controlled, continue to monitor BP trends. Clonidine available as needed. Continue home aspirin. Continue cardiac telemetry, monitor for any arrhythmias. Monitor reviewed, no events overnight. CBC and BMP reviewed, essentially unremarkable. Chest x-ray reviewed, lungs are clear. EKG reviewed showing normal sinus rhythm, no ST elevation or depression, heart rate control, no arrhythmias noted. Denies any chest pain overnight or currently. COPD not in exacerbation: Continue home inhalers. Supportive care. On room air , supplemental O2 as needed. Tobacco abuse: Encouraged cessation. GERD: GI prophylaxis, continue home Protonix. DVT prophylaxis: SCDs. Ambulation. Physician Certification 2 Midnight Certification Type: Admission for Inpatient Services Order for Inpatient Services The services are ordered in accordance with Medicare regulations or non- Medicare payer requirements, as applicable. In the case of services not specified as inpatient-only, they are appropriately provided as inpatient services in accordance with the 2-midnight benchmark. Estimated LOS (days): 2 2 days is the estimated time the patient will need to remain in the hospital, assuming treatment plan goals are met and no additional complications. Post-Hospital Plan: Home Betzaida Philip Nov 29, 2017 12:22
[2017-11-29] MEDS: LISINOPRIL 10 MG TAB PO SCH (13:06)
--- NOTE | 2017-11-29 15:40 | EKG ---
Date Performed: 11/28/2017 Time Performed: 16:03:23 PTAGE: 57 years EKG: Sinus rhythm POSSIBLE ANTERIOR MYOCARDIAL INFARCTION ABNORMAL ECG PREVIOUS TRACING : 10/11/2017 15.32 DOCTOR: Ethan Celestin Interpretating Date/Time 11/29/2017 15:38:46
[2017-11-30] VITALS: BP 135/75; PULSE 52; RESP 19; TEMP 98.5; O2SAT 98
[2017-11-30 04:16] VITALS: BP 149/85; PULSE 52; RESP 24; TEMP 98.3; O2SAT 97
[2017-11-30 08:00] VITALS: PULSE 52; PULSE 54; TEMP 97.9
[2017-11-30 08:01] VITALS: BP 142/88; PULSE 54; RESP 17
[2017-11-30] MEDS: ASPIRIN 81 MG CHEW TAB CHEW SCH (08:14)
[2017-11-30] MEDS: PANTOPRAZOLE SOD 20 MG DELAYED RELEASE TAB PO SCH (08:14)
[2017-11-30] MEDS: LISINOPRIL 10 MG TAB PO SCH (08:14)
[2017-11-30] MEDS: SODIUM CHLORIDE 0.9% FLUSH 10 ML FLUSH IV FLUSH SCH (08:14)
[2017-11-30] MEDS: ALBUTEROL SULFATE 90 MCG/ACT HFA 8 GM INHALER INH SCH (08:14)
[2017-11-30] MEDS: busPIRone HCL 5 MG TAB PO SCH (08:14)
[2017-11-30 10:38] VITALS: BP 145/81; PULSE 62; RESP 23
--- NOTE | 2017-11-30 10:50 | HHI.PR ---
Subjective Remarks Patient seen and examined, lying in bed comfortably denies any acute events overnight. Denies abdominal pain, nausea or vomiting. Blood pressure more controlled. Tolerating p.o. intake. Vital signs are stable. Labs reviewed, unremarkable. Objective Vitals Vital Signs Date Time Temp Pulse Resp B/P (MAP) Pulse Ox O2 Delivery O2 Flow Rate FiO2 11/30/17 04:16 52 11/30/17 04:16 98.3 52 24 149/85 (106) 97 11/30/17 00:00 98.5 52 19 135/75 (95) 98 11/30/17 00:00 52 11/29/17 20:00 98.5 60 21 136/77 (96) 97 11/29/17 20:00 60 11/29/17 16:00 98.0 136/80 (98) 11/29/17 16:00 52 11/29/17 12:00 97.8 170/92 (118) 11/29/17 12:00 54 I/O 11/29/17 11/29/17 11/29/17 11/30/17 11/30/17 11/30/17 06:59 14:59 22:59 06:59 14:59 22:59 Intake Total 200 ml 600 ml Output Total 600 ml 240 ml 600 ml Balance -400 ml -240 ml 0 ml Intake Oral 200 ml 600 ml Output Urine Total 600 ml 240 ml 600 ml Stool Total 0 ml Result Diagram: 11/29/17 0400 11/29/17 0400 Imaging Last Impressions Chest X-Ray 11/28/17 1554 Signed Impressions: Service Date/Time: Tuesday, November 28, 2017 16:31 - CONCLUSION: 1. The lungs are clear. 2. Displaced fracture mid shaft right clavicle, age-indeterminate. Dereck Bella MD Objective Remarks GENERAL: Well-developed, well-nourished patient in [facility]. SKIN: Warm and dry. No rash. HEAD: Normocephalic. Atraumatic. EYES: Pupils equal and round. No scleral icterus. No injection or drainage. ENT: No nasal bleeding or discharge. Mucous membranes pink and moist. NECK: Supple. Trachea midline. CARDIOVASCULAR: Regular rate and rhythm. S1, S2 noted. No murmur appreciated. No reproducible chest pain to palpation. RESPIRATORY: No accessory muscle use. Clear to auscultation. Breath sounds equal bilaterally. GASTROINTESTINAL: Abdomen soft, non-tender, nondistended. Normoactive bowel sounds x4. MUSCULOSKELETAL: No obvious deformities. Extremities without clubbing, cyanosis , or edema. NEUROLOGICAL: Awake and alert. No obvious cranial nerve deficits. Motor grossly within normal limits. 5/5 muscle strength in bilateral upper and lower extremities. Normal speech. PSYCHIATRIC: Appropriate mood and affect; insight and judgment normal. A/P Problem List: (1) Hypertension ICD Code: I10 - Essential (primary) hypertension Status: Acute Assessment and Plan This is a pleasant 57-year-old male patient with a known medical history of hypertension and COPD who presented to the ED with complaints of high blood pressure. Hypertensive crisis secondary to medication noncompliance Hypertension, chronic Patient states he has been noncompliant with medications and ran out at home. Presented with systolic BP in the 180s. Was given PO medications in the ED and transferred to the ICU for closer monitoring. Cardene drip was ordered but never started, hypertension resolved with p.o. medicines. Restarted home Norvasc 10 mg daily. Added lisinopril 10 mg daily. BP more controlled, continue to monitor BP trends. Clonidine available as needed. Continue home aspirin. Continue cardiac telemetry, monitor for any arrhythmias. Monitor reviewed, no events overnight. CBC and BMP reviewed, essentially unremarkable. Chest x-ray reviewed, lungs are clear. EKG reviewed showing normal sinus rhythm, no ST elevation or depression, heart rate control, no arrhythmias noted. Denies any chest pain overnight or currently. COPD not in exacerbation: Continue home inhalers. Supportive care. On room air , supplemental O2 as needed. Tobacco abuse: Encouraged cessation. GERD: GI prophylaxis, continue home Protonix. DVT prophylaxis: SCDs. Ambulation. Discharge Planning NH home today Betzaida Philip Nov 30, 2017 10:50
[2017-11-30] MEDS ORDERED: LISI10TA3 PO (11:20)
--- NOTE | 2017-11-30 11:20 | HHI.DCPOC ---
Discharge Care Plan Diagnosis: (1) Hypertension (2) Chest pain Goals to Promote Your Health * To prevent worsening of your condition and complications * To maintain your health at the optimal level Directions to Meet Your Goals Take your medications as prescribed Follow your dietary instruction Follow activity as directed Keep your appointments as scheduled Take your immunizations and boosters as scheduled If your symptoms worsen call your PCP, if no PCP go to Urgent Care Center or Emergency Room Smoking is Dangerous to Your Health. Avoid second hand smoke Call the 24-hour hour crisis hotline for domestic abuse at Betzaida Philip Nov 30, 2017 11:20
== END 2017-11-30 11:39 | disposition home or self-care (01) | DRG 305 ==
LOC: PHED 15:42 → PHEDA 17:19 → PHICU 18:37
PROVIDERS: ADMIT Hospitalist; ATTEND Hospitalist
DX: I16.9 Hypertensive crisis, unspecified (principal); J44.9 Chronic obstructive pulmonary disease, unspecified; I10 Essential (primary) hypertension; R07.9 Chest pain, unspecified; F12.90 Cannabis use, unspecified, uncomplicated; F17.210 Nicotine dependence, cigarettes, uncomplicated; F32.9 Major depressive disorder, single episode, unspecified; F41.9 Anxiety disorder, unspecified; Z86.711 Personal history of pulmonary embolism; Z86.73 Personal history of transient ischemic attack (TIA), and cerebral infarction without residual deficits; Z91.14 Patient's other noncompliance with medication regimen
CPT/HCPCS: 71045; 80048; 82550; 82552; 83735; 84484; 85025; 85610; 85730; 93005; 99285

== ENCOUNTER 2017-12-21 13:29 | Emergency (ER) | payer OTHER ==
[~2017-12-21] VITALS: Ht 167.6 cm; Wt 66.0 kg
[~2017-12-21 13:29] MED LIST changes: -GABA300C5 PO; +LISI10TA3 PO; -PROZ40CA PO
[2017-12-21 13:42] VITALS: BP 161/95; PULSE 89; RESP 18; TEMP 97.7; O2SAT 98
[2017-12-21 15:50] VITALS: BP 155/89; PULSE 81; RESP 18; TEMP 98; O2SAT 100
--- NOTE | 2017-12-21 17:10 | PD ---
HPI Chief Complaint: Respiratory Symptoms Time Seen by Provider: 15:47 Travel History International Travel<30 days: No Contact w/Intl Traveler<30days: No Traveled to known affect area: No History of Present Illness HPI This patient comes to the ER complaining about his elevated blood pressure. On arrival is 155/89. He says it was much higher at home.in General he is feeling well. He is not having headache or chest pain. Severity is mild. PFSH Past Medical History Hx Anticoagulant Therapy: No (asa 81mg) Arthritis: No Asthma: No Autoimmune Disease: No Blood Disorders: No Anxiety: Yes Depression: Yes Heart Rhythm Problems: No Cancer: No Cardiovascular Problems: Yes (htn on meds) High Cholesterol: No Chemotherapy: No Chest Pain: No Congestive Heart Failure: No COPD: Yes Cerebrovascular Accident: Yes (TIA) Diabetes: No Diminished Hearing: No Endocrine: No GERD: Yes Glaucoma: No Genitourinary: No Headaches: No Hepatitis: No Hiatal Hernia: No Hypertension: Yes Immune Disorder: No Kidney Stones: No Musculoskeletal: No Neurologic: No Psychiatric: No Reproductive: No Respiratory: Yes (copd) Immunizations Current: No Migraines: No Myocardial Infarction: No Radiation Therapy: No Renal Failure: Yes Seizures: No Sickle Cell Disease: No Sleep Apnea: No Thyroid Disease: No Ulcer: No Influenza Vaccination: No ?: Not Past Surgical History Abdominal Surgery: Yes (APPENDECTOMY) AICD: No Appendectomy: Yes Arteriovenous Shunt: No Cardiac Surgery: No Cholecystectomy: No Ear Surgery: No Endocrine Surgery: No Eye Surgery: No Genitourinary Surgery: No Gynecologic Surgery: No Insulin Pump: No Joint Replacement: No Oral Surgery: No Pacemaker: No Thoracic Surgery: No Other Surgery: Yes Social History Alcohol Use: Yes (DAILY, STATES LAST DRINK WAS 10/09/17) Tobacco Use: Yes (10/12 PPD) Substance Use: Yes (MARIJUANA OCCASIONALLY) Allergies-Medications (Allergen,Severity, Reaction): Coded Allergies: No Known Allergies (Verified Adverse Reaction, Unknown, 12/21/17) Reported Meds & Prescriptions Reported Meds & Active Scripts Active Lisinopril 10 Mg Tab 10 Mg PO DAILY 30 Days Reported Pantoprazole (Pantoprazole Sodium) 20 Mg Tab 20 Mg PO BID Aspirin 81 Mg Chew 81 Mg CHEW DAILY Buspirone (Buspirone HCl) 15 Mg Tab 15 Mg PO TID Amlodipine (Amlodipine Besylate) 10 Mg Tab 10 Mg PO DAILY Albuterol Neb (Albuterol Sulfate) 0.63 Mg/3 Ml Neb 0.63 Mg NEB Q6HR NEB PRN Ventolin Hfa 18 GM Inh (Albuterol Sulfate) 90 Mcg/Act Aer 2 Puff INH TID Review of Systems General / Constitutional: No: Fever HENT: No: Headaches Cardiovascular: No: Chest Pain or Discomfort Respiratory: No: Cough Gastrointestinal: No: Nausea Physical Exam Narrative GASTROINTESTINAL: Abdomen soft, non-tender, nondistended. Positive bowel sounds. No hepato-splenomegaly, or palpable masses. No guarding. RESPIRATORY: Respiratory effort unlabored, no retractions or use of accessory muscles. Breath sounds are clear and symmetric. CARDIOVASCULAR: Regular rate and rhythm without murmur. Extremities showed no edema or varicosities. Data Data Last Documented VS Vital Signs Date Time Temp Pulse Resp B/P (MAP) Pulse Ox O2 Delivery O2 Flow Rate FiO2 12/21/17 15:50 98.0 81 18 155/89 (111) 100 Room Air MDM Medical Decision Making Medical Screen Exam Complete: Yes Emergency Medical Condition: Yes Medical Record Reviewed: Yes Differential Diagnosis Accelerated hypertension, hypertensive urgency, essential hypertension Narrative Course I have reviewed the patient's electronic medical record. Patient's blood pressure is improved spontaneously. He is advised to check and record daily. Stable for outpatient follow-up Diagnosis Primary Impression: Accelerated hypertension Additional Instructions: The patient was advised to follow up with their physician and return if they worsen. Check and record blood pressure daily Med/Other Pt SpecificInfo: Other Disposition: 01 DISCHARGE HOME Condition: Stable Devin Frazier MD Dec 21, 2017 17:10
== END 2017-12-21 17:13 | disposition home or self-care (01) ==
LOC: PHED 13:29
DX: I10 Essential (primary) hypertension (principal); J44.9 Chronic obstructive pulmonary disease, unspecified; N19 Unspecified kidney failure; K21.9 Gastro-esophageal reflux disease without esophagitis; F32.9 Major depressive disorder, single episode, unspecified; F41.9 Anxiety disorder, unspecified; F17.210 Nicotine dependence, cigarettes, uncomplicated; Z86.73 Personal history of transient ischemic attack (TIA), and cerebral infarction without residual deficits; Z79.899 Other long term (current) drug therapy
CPT/HCPCS: 99282

== ENCOUNTER 2018-01-26 22:39 | Emergency (ER) | payer OTHER ==
[~2018-01-26] VITALS: Ht 170.2 cm; Wt 68.0 kg
[2018-01-26 22:40] VITALS: BP 106/70; PULSE 87; RESP 16; TEMP 97.9; O2SAT 94
--- NOTE | 2018-01-26 22:50 | PD ---
HPI Chief Complaint: Altered mental status Time Seen by Provider: 22:46 Travel History International Travel<30 days: No Contact w/Intl Traveler<30days: No History of Present Illness HPI 57-year-old male patient presents to the ER today brought in by EMS, apparently had been drinking at a bar and fell off the barstool hitting his head, poorly responsive.. He is not able to give me any further history. He has an abrasion to his right elbow but no other significant injuries are identified. Modifying Factors: None Associated Signs & Symptoms: Alcohol use, fall from barstool, head injury, altered mental status Risk Factors: Unknown PFSH Past Medical History Hx Anticoagulant Therapy: No (asa 81mg) Arthritis: No Asthma: No Autoimmune Disease: No Blood Disorders: No Anxiety: Yes Depression: Yes Heart Rhythm Problems: No Cancer: No Cardiovascular Problems: Yes (htn on meds) High Cholesterol: No Chemotherapy: No Chest Pain: No Congestive Heart Failure: No COPD: Yes Cerebrovascular Accident: Yes (TIA) Diabetes: No Diminished Hearing: No Endocrine: No GERD: Yes Glaucoma: No Genitourinary: No Headaches: No Hepatitis: No Hiatal Hernia: No Hypertension: Yes Immune Disorder: No Kidney Stones: No Musculoskeletal: No Neurologic: No Psychiatric: No Reproductive: No Respiratory: Yes (copd) Immunizations Current: No Migraines: No Myocardial Infarction: No Radiation Therapy: No Renal Failure: Yes Seizures: No Sickle Cell Disease: No Sleep Apnea: No Thyroid Disease: No Ulcer: No Past Surgical History Abdominal Surgery: Yes (APPENDECTOMY) AICD: No Appendectomy: Yes Arteriovenous Shunt: No Cardiac Surgery: No Cholecystectomy: No Ear Surgery: No Endocrine Surgery: No Eye Surgery: No Genitourinary Surgery: No Gynecologic Surgery: No Insulin Pump: No Joint Replacement: No Oral Surgery: No Pacemaker: No Thoracic Surgery: No Other Surgery: Yes Social History Alcohol Use: Yes (DAILY, STATES LAST DRINK WAS 10/09/17) Tobacco Use: Yes (10/12 PPD) Substance Use: Yes (MARIJUANA OCCASIONALLY) Allergies-Medications (Allergen,Severity, Reaction): Coded Allergies: No Known Allergies (Verified Adverse Reaction, Unknown, 12/21/17) Reported Meds & Prescriptions Reported Meds & Active Scripts Active Lisinopril 10 Mg Tab 10 Mg PO DAILY 30 Days Reported Pantoprazole (Pantoprazole Sodium) 20 Mg Tab 20 Mg PO BID Aspirin 81 Mg Chew 81 Mg CHEW DAILY Buspirone (Buspirone HCl) 15 Mg Tab 15 Mg PO TID Amlodipine (Amlodipine Besylate) 10 Mg Tab 10 Mg PO DAILY Albuterol Neb (Albuterol Sulfate) 0.63 Mg/3 Ml Neb 0.63 Mg NEB Q6HR NEB PRN Ventolin Hfa 18 GM Inh (Albuterol Sulfate) 90 Mcg/Act Aer 2 Puff INH TID Review of Systems ROS Limitations: Intoxication, Altered Mental Status (Unable to give me further history) Physical Exam Exam Limitations: Intoxication, Altered Mental Status Narrative GENERAL: Well-developed middle-age male patient currently in moderate distress, poorly responsive to verbal cues, disoriented, lethargic. In backboard and c- collar. SKIN: Focused skin assessment warm/dry. HEAD: Atraumatic. Normocephalic. EYES: Pupils are pinpoint, equal and round, poorly reactive to light bilaterally. No scleral icterus. No injection or drainage. ENT: No nasal bleeding or discharge. Mucous membranes pink and moist. NECK: Trachea midline. No JVD. C-collar in place. CARDIOVASCULAR: Regular rate and rhythm. No murmur appreciated. RESPIRATORY: No accessory muscle use. Clear to auscultation. Breath sounds equal bilaterally. GASTROINTESTINAL: Abdomen soft, non-tender, nondistended. Hepatic and splenic margins not palpable. MUSCULOSKELETAL: No obvious deformities. No clubbing. No cyanosis. No edema. NEUROLOGICAL: Lethargic. Unable to follow commands. PSYCHIATRIC: Lethargic, judgment poor, unable to follow commands, unable to evaluate further. Data Data Orders Orders Ammonia (01/26/18 22:46) Complete Blood Count With Diff (01/26/18 22:46) Comprehensive Metabolic Panel (01/26/18 22:46) Prothrombin Time / Inr (Pt) (01/26/18 22:46) Act Partial Throm Time (Ptt) (01/26/18 22:46) Ct Brain W/O Iv Contrast(Rout) (01/26/18 22:46) Blood Glucose (01/26/18 22:46) Ecg Monitoring (01/26/18 22:46) [facility] Medical Decision Making Medical Screen Exam Complete: Yes Emergency Medical Condition: Yes Medical Record Reviewed: Yes Differential Diagnosis Altered mental status/intoxication/rule out intracranial injuries Narrative Course Lab work and CAT scan of the brain was ordered for the patient for further evaluation. Physician Communication Physician Communication Case is signed out to Dr. Alexander at 11 PM pending lab work and CAT scan. Disposition based on workup. Diagnosis Primary Impression: Acute alcohol intoxication Additional Impression: Closed head injury Kody Montenegro MD Jan 26, 2018 22:50
[2018-01-26] MEDS ORDERED: SODIUM CHLORIDE 0.9% FLUSH 10 ML FLUSH IV FLUSH PRN (23:00)
[2018-01-26 23:09] VITALS: RESP 18; O2SAT 94
[2018-01-26 23:11] LABS: AUTOMATED NEUTROPHIL # 4.3 TH/MM3 (1.8-7.7); BASOPHIL # 0.1 TH/MM3 (0-0.2); BASOPHIL % 1.4 % (0.0-2.0); EOSINOPHIL # 0.2 TH/MM3 (0-0.4); EOSINOPHIL % 2.6 % (0.0-4.0); HEMATOCRIT 49.8 % (39.0-51.0); HEMOGLOBIN 16.6 GM/DL (13.0-17.0); LYMPH % 37.8 % (9.0-44.0); LYMPHOCYTE # 3.2 TH/MM3 (1.0-4.8); MEAN CELL VOLUME 97.8 FL (80.0-100.0); MEAN CORPUSCULAR HEMOGLOBIN 32.7 PG (27.0-34.0); MEAN CORPUSCULAR HGB CONC 33.4 % (32.0-36.0); MEAN PLATELET VOLUME 8.4 FL (7.0-11.0); MONO % 8.1 % (0.0-8.0); MONOCYTE # 0.7 TH/MM3 (0-0.9); NEUT % 50.1 % (16.0-70.0); PLATELET COUNT 217 TH/MM3 (150-450); RED BLOOD COUNT 5.09 MIL/MM3 (4.50-5.90); RED CELL DISTRIBUTION WIDTH 13.3 % (11.6-17.2); WHITE BLOOD COUNT 8.5 TH/MM3 (4.0-11.0)
[2018-01-26 23:19] LABS: CHLORIDE 107 MEQ/L (98-107); SODIUM (NA) 145 MEQ/L (136-145)
[2018-01-26 23:20] VITALS: BP 128/69; PULSE 72; RESP 18; O2SAT 97
[2018-01-26 23:23] LABS: ALBUMIN 3.6 GM/DL (3.4-5.0); BLOOD UREA NITROGEN 14 MG/DL (7-18); CALCIUM 8.5 MG/DL (8.5-10.1); GLUCOSE,RANDOM 116 MG/DL (74-106)
--- NOTE | 2018-01-26 23:23 | PD ---
Physical Exam Date Seen by Provider: Jan 26, 2018 Time Seen by Provider: 23:23 Narrative accepted in transfer of care from Dr Montenegro GENERAL: Well-developed male somnolent. SKIN: Warm and dry. HEAD: Normocephalic. Superficial abrasion to the posterior occiput without laceration or palpable bony abnormality or soft tissue swelling EYES: No scleral icterus. Pupils round reactive to light. No injection or drainage. NECK: Supple, trachea midline. No JVD or lymphadenopathy. Cervical collar in place. CARDIOVASCULAR: Regular rate and rhythm without murmurs, gallops, or rubs. RESPIRATORY: Breath sounds equal bilaterally. No accessory muscle use. GASTROINTESTINAL: Abdomen soft, non-tender, nondistended. MUSCULOSKELETAL: No cyanosis, or edema. BACK: Nontender without obvious deformity. No CVA tenderness. Data Data Last Documented VS Vital Signs Date Time Temp Pulse Resp B/P (MAP) Pulse Ox O2 Delivery O2 Flow Rate FiO2 01/27/18 05:26 79 16 118/64 (82) 96 Nasal Cannula 2.00 01/26/18 22:40 97.9 Orders Orders Ammonia (01/26/18 22:46) Complete Blood Count With Diff (01/26/18 22:46) Comprehensive Metabolic Panel (01/26/18 22:46) Prothrombin Time / Inr (Pt) (01/26/18 22:46) Act Partial Throm Time (Ptt) (01/26/18 22:46) Ct Brain W/O Iv Contrast(Rout) (01/26/18 22:46) Blood Glucose (01/26/18 22:46) Ecg Monitoring (01/26/18 22:46) Iv Access Insert/Monitor (01/26/18 22:46) Oximetry (01/26/18 22:46) Sodium Chloride 0.9% Flush (Ns Flush) (01/26/18 23:00) Alcohol (Ethanol) (01/26/18 22:46) Ct Cerv Spine W/O Contrast (01/26/18 22:46) Ondansetron Inj (Zofran Inj) (01/27/18 00:15) Sodium Chlor 0.9% 1000 Ml Inj (Ns 1000 M (01/27/18 00:15) Tetanus/Diphtheria Tox Adult (Tetanus/Di (01/27/18 02:00) Magnesium (Mg) (01/26/18 23:00) Labs Laboratory Tests Test 01/26/18 23:00 White Blood Count 8.5 TH/MM3 Red Blood Count 5.09 MIL/MM3 Hemoglobin 16.6 GM/DL Hematocrit 49.8 % Mean Corpuscular Volume 97.8 FL Mean Corpuscular Hemoglobin 32.7 PG Mean Corpuscular Hemoglobin Concent 33.4 % Red Cell Distribution Width 13.3 % Platelet Count 217 TH/MM3 Mean Platelet Volume 8.4 FL Neutrophils (%) (Auto) 50.1 % Lymphocytes (%) (Auto) 37.8 % Monocytes (%) (Auto) 8.1 % Eosinophils (%) (Auto) 2.6 % Basophils (%) (Auto) 1.4 % Neutrophils # (Auto) 4.3 TH/MM3 Lymphocytes # (Auto) 3.2 TH/MM3 Monocytes # (Auto) 0.7 TH/MM3 Eosinophils # (Auto) 0.2 TH/MM3 Basophils # (Auto) 0.1 TH/MM3 CBC Comment DIFF FINAL Differential Comment Prothrombin Time 10.2 SEC Prothromb Time International Ratio 1.0 RATIO Activated Partial Thromboplast Time 24.2 SEC Blood Urea Nitrogen 14 MG/DL Creatinine 0.95 MG/DL Random Glucose 116 MG/DL Total Protein 7.8 GM/DL Albumin 3.6 GM/DL Calcium Level 8.5 MG/DL Magnesium Level 2.5 MG/DL Alkaline Phosphatase 148 U/L Aspartate Amino Transf (AST/SGOT) 415 U/L Alanine Aminotransferase (ALT/SGPT) 303 U/L Total Bilirubin 0.5 MG/DL Sodium Level 145 MEQ/L Potassium Level 3.4 MEQ/L Chloride Level 107 MEQ/L Carbon Dioxide Level 25.0 MEQ/L Anion Gap 13 MEQ/L Estimat Glomerular Filtration Rate 82 ML/MIN Ammonia 37 MCMOL/L Ethyl Alcohol Level 432 MG/DL [facility] Medical Record Reviewed: Yes Supervised Visit with LAWRENCE: No Interpretation(s) Last Impressions Head CT 01/26/182245 Signed Impressions: Service Date/Time: Friday, January 26, 2018 23:33 - CONCLUSION: 1. Posterior soft tissue hematoma. 2. No acute intracranial abnormality. Dereck Lazo Jr., MD Cervical Spine CT 01/26/182245 Signed Impressions: Service Date/Time: Friday, January 26, 2018 23:33 - CONCLUSION: 1. No fracture or dislocation. 2. Diffuse degenerative changes as detailed above. The appearance is stable from the prior study. Dereck Lazo Jr., MD CBC & BMP Diagram 01/26/18 23:00 Total Protein 7.8, Albumin 3.6, Calcium Level 8.5, Magnesium Level 2.5, Alkaline Phosphatase 148 H, Aspartate Amino Transf (AST/SGOT) 415 H, Alanine Aminotransferase (ALT/SGPT) 303 H, Total Bilirubin 0.5 Vital Signs Date Time Temp Pulse Resp B/P (MAP) Pulse Ox O2 Delivery O2 Flow Rate FiO2 01/27/18 01:01 84 18 133/77 (95) 100 Nasal Cannula 2.00 01/27/18 00:00 86 18 132/86 (101) 98 Nasal Cannula 2.00 01/26/18 23:20 72 18 128/69 (88) 97 Nasal Cannula 2.00 01/26/18 23:12 Room Air 01/26/18 23:09 18 94 Room Air 01/26/18 22:40 97.9 87 16 106/70 (82) 94 Differential Diagnosis accepted in transfer of care from Dr Montenegro; please refer to her dictation Narrative Course accepted in transfer of care from Dr Montenegro; follow up on CT's, labs, and disposition Imaging studies resulted no acute intracranial abnormality or skull fracture; cervical spine chronic disc disease no acute bony abnormality fracture subluxation or dislocation Serum alcohol markedly elevated for 432 Cervical collar removed by me after CT cervical spine reading per radiologist; patient given Zofran 4 mg IV Patient administered IV fluids 1 L At 4 AM patient, patient awake with slurred speech and confusion consistent with alcohol intoxication lab values otherwise grossly normal range except for minimal elevation of serum ammonia 37 and elevated transaminases consistent with alcohol use At 530 AM patient is sleeping and easily awakened to voice and to his name. Patient cooperative. Patient admits to drinking a lot of alcohol. Patient apologetic for being in the emergency department. Patient concerned if he will be okay after hitting his head. Patient informed of imaging results. Patient is aware that he is still in the emergency department and being observed while alcohol is clearing his system. Patient will be reassessed at 7 AM. Care signed over to Dr Ortiz Diagnosis Primary Impression: Acute alcohol intoxication Additional Impressions: Closed head injury Cervical disc disease Referrals: [facility] Phys[facility] Patient Instructions: General Instructions Additional Instruction: Increase fluid hydration without alcoholic beverages May take ibuprofen 400 mg as often as every 6-8 hours as needed for pain associated with inflammation or for fever 100.4F or greater Avoid acetaminophen Follow head injury precautions for 24 hours Follow-up with [facility] regarding alcohol detox resources Use ice intermittently to areas of soft tissue swelling Keep scalp abrasion clean and dry follow wound care directions Return to the emergency department for any concerns or change in condition Rosio Alexander MD Jan 26, 2018 23:23
[2018-01-26 23:26] LABS: ALT (GPT) 303 U/L (12-78); AST (GOT) 415 U/L (15-37); CREATININE 0.95 MG/DL (0.60-1.30); GLOMERULAR FILTRATION RATE 82 ML/MIN (>89); PROTHROMBIN TIME - PATIENT 10.2 SEC (9.8-11.6)
[2018-01-26 23:28] LABS: TOTAL BILIRUBIN ADULT 0.5 MG/DL (0.2-1.0); TOTAL PROTEIN 7.8 GM/DL (6.4-8.2)
[2018-01-26 23:29] LABS: ALKALINE PHOSPHATASE 148 U/L (45-117)
--- NOTE | 2018-01-26 23:56 | RADRPT ---
EXAM DATE/TIME: 01/26/2018 23:33 [facility] COMPARISON: CT BRAIN W/O CONTRAST, August 11, 2016, 15:19. INDICATIONS : Fell hitting back of head. RADIATION DOSE: 66.44 CTDIvol (mGy) MEDICAL HISTORY : Cerebrovascular disease. Hypertension. Chronic obstructive pulmonary disease.GERD SURGICAL HISTORY : Appendectomy. ENCOUNTER: Initial ACUITY: 1 day PAIN SCALE: Non-responsive LOCATION: cranial TECHNIQUE: Multiple contiguous axial images were obtained of the head. Using automated exposure control and adj ustment of the mA and/or kV according to patient size, radiation dose was kept as low as reasonably a chievable to obtain optimal diagnostic quality images. DICOM format image data is available electro nically for review and comparison. FINDINGS: CEREBRUM: The ventricles are normal for age. No evidence of midline shift, mass lesion, hemorrhage or acute in farction. No extra-axial fluid collections are seen. POSTERIOR FOSSA: The cerebellum and brainstem are intact. The 4th ventricle is midline. The cerebellopontine angle i s unremarkable. EXTRACRANIAL: A posterior soft tissue hematoma. The visualized portion of the orbits is intact. SKULL: The calvaria is intact. No evidence of skull fracture. CONCLUSION: 1. Posterior soft tissue hematoma. 2. No acute intracranial abnormality. Dereck Lazo Jr., MD on January 26, 2018 at 23:51 Board Certified Radiologist. This report was verified electronically.
[2018-01-27] VITALS (9 sets, daily range): BP systolic 102–134; BP diastolic 64–86; PULSE 66–96; RESP 14–18; O2SAT 95–100
--- NOTE | 2018-01-27 00:03 | RADRPT ---
EXAM DATE/TIME: 01/26/2018 23:33 [facility] COMPARISON: CT CERVICAL SPINE W/O CONTRAST, August 11, 2016, 15:19. INDICATIONS : Fell hitting back of head. RADIATION DOSE: 26.41 CTDIvol (mGy) MEDICAL HISTORY : Cardiovascular disease. Hypertension. Chronic obstructive pulmonary disease.GERD SURGICAL HISTORY : Appendectomy. ENCOUNTER: Initial ACUITY: 1 day PAIN SCALE: Non-responsive LOCATION: neck TECHNIQUE: Volumetric scanning of the cervical spine was performed. Multiplanar reconstructions in the sagittal, coronal and oblique axial planes were performed. Using automated exposure control and adjustment o f the mA and/or kV according to patient size, radiation dose was kept as low as reasonably achievable to obtain optimal diagnostic quality images. DICOM format image data is available electronically f or review and comparison. FINDINGS: VERTEBRAE: Normal vertebral body height. ALIGNMENT: No evidence of subluxation. C2-C3: There is a mild central bulge. No bone or central canal stenosis. Neural foramina are patent. C3-C4: There is a mild central bulge. No bone or central canal stenosis. Neural foramina are patent. C4-C5: There is a right paracentral disc protrusion with abutment of the cord. Neural foramina are patent bi laterally. C5-C6: There is a mild central bulge. No bone or central canal stenosis. Mild narrowing of the neural forami na bilaterally secondary to bony uncal vertebral hypertrophy. This is more pronounced on the right. C6-C7: Is a broad-based disc bulge. No abutment of the cord. Narrowing of the lateral recesses and neural fo ramina bilaterally. C7-T1: The bony spinal canal is normal in size. No evidence of disc bulge or herniation. The neural forami na are bilaterally patent. CONCLUSION: 1. No fracture or dislocation. 2. Diffuse degenerative changes as detailed above. The appearance is stable from the prior study. eDreck Lazo Jr., MD on January 26, 2018 at 23:58 Board Certified Radiologist. This report was verified electronically.
[2018-01-27] MEDS ORDERED: ONDANSETRON HCL 4 MG/2 ML VIAL IV PUSH ONE (00:15)
[2018-01-27] MEDS ORDERED: SODIUM CHLOR 0.9% 1000 ML INJ 1,000 ML IV ONE (00:15)
[2018-01-27] MEDS ORDERED: TETANUS/DIPHTHERIA TOXOID ADULT 0.5 ML VIAL IM ONE (02:00)
[2018-01-27 02:14] LABS: MAGNESIUM 2.5 MG/DL (1.5-2.5)
--- NOTE | 2018-01-27 07:01 | PD ---
HPI Chief Complaint: Fall Time Seen by Provider: 07:01 Travel History International Travel<30 days: No Contact w/Intl Traveler<30days: No Traveled to known affect area: No (UNKNOWN ) History of Present Illness HPI Care assumed from Dr. Alexander 57-year-old male patient presents to the ER today brought in by EMS, apparently had been drinking at a bar and fell off the barstool hitting his head, poorly responsive.. He is not able to give me any further history. He has an abrasion to his right elbow but no other significant injuries are identified. PFSH Past Medical History Hx Anticoagulant Therapy: No (asa 81mg) Arthritis: No Asthma: No Autoimmune Disease: No Blood Disorders: No Anxiety: Yes Depression: Yes Heart Rhythm Problems: No Cancer: No Cardiovascular Problems: Yes (htn on meds) High Cholesterol: No Chemotherapy: No Chest Pain: No Congestive Heart Failure: No COPD: Yes Cerebrovascular Accident: Yes (TIA) Diabetes: No Diminished Hearing: No Endocrine: No GERD: Yes Glaucoma: No Genitourinary: No Headaches: No Hepatitis: No Hiatal Hernia: No Hypertension: Yes Immune Disorder: No Kidney Stones: No Musculoskeletal: No Neurologic: No Psychiatric: No Reproductive: No Respiratory: Yes (copd) Immunizations Current: No Migraines: No Myocardial Infarction: No Radiation Therapy: No Renal Failure: Yes Seizures: No Sickle Cell Disease: No Sleep Apnea: No Thyroid Disease: No Ulcer: No Past Surgical History Abdominal Surgery: Yes (APPENDECTOMY) AICD: No Appendectomy: Yes Arteriovenous Shunt: No Cardiac Surgery: No Cholecystectomy: No Ear Surgery: No Endocrine Surgery: No Eye Surgery: No Genitourinary Surgery: No Gynecologic Surgery: No Insulin Pump: No Joint Replacement: No Oral Surgery: No Pacemaker: No Thoracic Surgery: No Other Surgery: Yes Social History Alcohol Use: Yes (DAILY, STATES LAST DRINK WAS 10/09/17) Tobacco Use: Yes (10/12 PPD) Substance Use: Yes (MARIJUANA OCCASIONALLY) Allergies-Medications (Allergen,Severity, Reaction): Coded Allergies: No Known Allergies (Verified Adverse Reaction, Unknown, 12/21/17) Reported Meds & Prescriptions Reported Meds & Active Scripts Active Lisinopril 10 Mg Tab 10 Mg PO DAILY 30 Days Reported Pantoprazole (Pantoprazole Sodium) 20 Mg Tab 20 Mg PO BID Aspirin 81 Mg Chew 81 Mg CHEW DAILY Buspirone (Buspirone HCl) 15 Mg Tab 15 Mg PO TID Amlodipine (Amlodipine Besylate) 10 Mg Tab 10 Mg PO DAILY Albuterol Neb (Albuterol Sulfate) 0.63 Mg/3 Ml Neb 0.63 Mg NEB Q6HR NEB PRN Ventolin Hfa 18 GM Inh (Albuterol Sulfate) 90 Mcg/Act Aer 2 Puff INH TID Physical Exam Narrative GENERAL: Well-developed male somnolent. SKIN: Warm and dry. HEAD: Normocephalic. Superficial abrasion to the posterior occiput without laceration or palpable bony abnormality or soft tissue swelling EYES: No scleral icterus. Pupils round reactive to light. No injection or drainage. NECK: Supple, trachea midline. No JVD or lymphadenopathy. Cervical collar in place. CARDIOVASCULAR: Regular rate and rhythm without murmurs, gallops, or rubs. RESPIRATORY: Breath sounds equal bilaterally. No accessory muscle use. GASTROINTESTINAL: Abdomen soft, non-tender, nondistended. MUSCULOSKELETAL: No cyanosis, or edema. BACK: Nontender without obvious deformity. No CVA tenderness. Data Data Last Documented VS Vital Signs Date Time Temp Pulse Resp B/P (MAP) Pulse Ox O2 Delivery O2 Flow Rate FiO2 01/27/18 08:45 67 16 107/68 (81) 96 Room Air 01/27/18 05:26 2.00 01/26/18 22:40 97.9 Orders Orders Ammonia (01/26/18 22:46) Complete Blood Count With Diff (01/26/18 22:46) Comprehensive Metabolic Panel (01/26/18 22:46) Prothrombin Time / Inr (Pt) (01/26/18 22:46) Act Partial Throm Time (Ptt) (01/26/18 22:46) Ct Brain W/O Iv Contrast(Rout) (01/26/18 22:46) Blood Glucose (01/26/18 22:46) Ecg Monitoring (01/26/18 22:46) Iv Access Insert/Monitor (01/26/18 22:46) Oximetry (01/26/18 22:46) Sodium Chloride 0.9% Flush (Ns Flush) (01/26/18 23:00) Alcohol (Ethanol) (01/26/18 22:46) Ct Cerv Spine W/O Contrast (01/26/18 22:46) Ondansetron Inj (Zofran Inj) (01/27/18 00:15) Sodium Chlor 0.9% 1000 Ml Inj (Ns 1000 M (01/27/18 00:15) Tetanus/Diphtheria Tox Adult (Tetanus/Di (01/27/18 02:00) Magnesium (Mg) (01/26/18 23:00) Labs Laboratory Tests Test 01/26/18 23:00 White Blood Count 8.5 TH/MM3 Red Blood Count 5.09 MIL/MM3 Hemoglobin 16.6 GM/DL Hematocrit 49.8 % Mean Corpuscular Volume 97.8 FL Mean Corpuscular Hemoglobin 32.7 PG Mean Corpuscular Hemoglobin Concent 33.4 % Red Cell Distribution Width 13.3 % Platelet Count 217 TH/MM3 Mean Platelet Volume 8.4 FL Neutrophils (%) (Auto) 50.1 % Lymphocytes (%) (Auto) 37.8 % Monocytes (%) (Auto) 8.1 % Eosinophils (%) (Auto) 2.6 % Basophils (%) (Auto) 1.4 % Neutrophils # (Auto) 4.3 TH/MM3 Lymphocytes # (Auto) 3.2 TH/MM3 Monocytes # (Auto) 0.7 TH/MM3 Eosinophils # (Auto) 0.2 TH/MM3 Basophils # (Auto) 0.1 TH/MM3 CBC Comment DIFF FINAL Differential Comment Prothrombin Time 10.2 SEC Prothromb Time International Ratio 1.0 RATIO Activated Partial Thromboplast Time 24.2 SEC Blood Urea Nitrogen 14 MG/DL Creatinine 0.95 MG/DL Random Glucose 116 MG/DL Total Protein 7.8 GM/DL Albumin 3.6 GM/DL Calcium Level 8.5 MG/DL Magnesium Level 2.5 MG/DL Alkaline Phosphatase 148 U/L Aspartate Amino Transf (AST/SGOT) 415 U/L Alanine Aminotransferase (ALT/SGPT) 303 U/L Total Bilirubin 0.5 MG/DL Sodium Level 145 MEQ/L Potassium Level 3.4 MEQ/L Chloride Level 107 MEQ/L Carbon Dioxide Level 25.0 MEQ/L Anion Gap 13 MEQ/L Estimat Glomerular Filtration Rate 82 ML/MIN Ammonia 37 MCMOL/L Ethyl Alcohol Level 432 MG/DL [facility] Medical Decision Making Medical Screen Exam Complete: Yes Emergency Medical Condition: Yes Differential Diagnosis Alcohol abuse, head trauma Narrative Course At 0700 AM patient is sleeping and easily awakened to voice and to his name. Patient cooperative. Patient admits to drinking a lot of alcohol. Patient apologetic for being in the emergency department. Patient concerned if he will be okay after hitting his head. Patient informed of imaging results. Patient is aware that he is still in the emergency department and being observed while alcohol is clearing his system. Patient will be reassessed at 0900 AM. Alert oriented ambulating about the emergency room. Friend picking him up. Diagnosis Primary Impression: Acute alcohol intoxication Qualified Codes: F10.929 - Alcohol use, unspecified with intoxication, unspecified Additional Impressions: Closed head injury Qualified Codes: S09.90XA - Unspecified injury of head, initial encounter Cervical disc disease Referrals: Primary Care Physician 2 days [facility] 1 day Patient Instructions: General Instructions Additional Instructions: Increase fluid hydration without alcoholic beverages May take ibuprofen 400 mg as often as every 6-8 hours as needed for pain associated with inflammation or for fever 100.4F or greater Avoid acetaminophen Follow head injury precautions for 24 hours Follow-up with [facility] regarding alcohol detox resources Use ice intermittently to areas of soft tissue swelling Keep scalp abrasion clean and dry follow wound care directions Return to the emergency department for any concerns or change in condition Med/Other Pt SpecificInfo: No Meds Exist/No RX given Disposition: 01 DISCHARGE HOME Condition: Good Xaiver Ortiz MD Jan 27, 2018 07:01
== END 2018-01-27 09:14 | disposition home or self-care (01) ==
LOC: PHED 22:39
DX: F10.129 Alcohol abuse with intoxication, unspecified (principal); S09.90XA Unspecified injury of head, initial encounter; M50.322 Other cervical disc degeneration at C5-C6 level; M50.323 Other cervical disc degeneration at C6-C7 level; I10 Essential (primary) hypertension; J44.9 Chronic obstructive pulmonary disease, unspecified; W07.XXXA Fall from chair, initial encounter; Y92.29 Other specified public building as the place of occurrence of the external cause; Z79.899 Other long term (current) drug therapy
CPT/HCPCS: 70450; 72125; 80053; 80307; 82140; 83735; 85025; 85610; 85730; 90471; 90714; 96361; 96374; 99284; J2405; J7030

== ENCOUNTER 2018-01-27 20:27 | Emergency (ER) | payer OTHER ==
[2018-01-27] MEDS ORDERED: SODIUM CHLOR 0.9% 1000 ML INJ 1,000 ML IV SCH (20:39)
[2018-01-27 20:42] VITALS: PULSE 65; RESP 18; TEMP 97.6; O2SAT 96
[2018-01-27] MEDS ORDERED: SODIUM CHLORIDE 0.9% FLUSH 10 ML FLUSH IV FLUSH PRN (20:45)
[2018-01-27 21:04] LABS: AUTOMATED NEUTROPHIL # 6.5 TH/MM3 (1.8-7.7); BASOPHIL # 0.1 TH/MM3 (0-0.2); BASOPHIL % 0.6 % (0.0-2.0); EOSINOPHIL # 0.1 TH/MM3 (0-0.4); EOSINOPHIL % 0.7 % (0.0-4.0); HEMATOCRIT 41.1 % (39.0-51.0); HEMOGLOBIN 14.6 GM/DL (13.0-17.0); LYMPH % 14.5 % (9.0-44.0); LYMPHOCYTE # 1.3 TH/MM3 (1.0-4.8); MEAN CELL VOLUME 96.8 FL (80.0-100.0); MEAN CORPUSCULAR HEMOGLOBIN 34.3 PG (27.0-34.0); MEAN CORPUSCULAR HGB CONC 35.5 % (32.0-36.0); MEAN PLATELET VOLUME 8.8 FL (7.0-11.0); MONO % 9.8 % (0.0-8.0); MONOCYTE # 0.9 TH/MM3 (0-0.9); NEUT % 74.4 % (16.0-70.0); PLATELET COUNT 176 TH/MM3 (150-450); RED BLOOD COUNT 4.25 MIL/MM3 (4.50-5.90); RED CELL DISTRIBUTION WIDTH 14.1 % (11.6-17.2); WHITE BLOOD COUNT 8.7 TH/MM3 (4.0-11.0)
--- NOTE | 2018-01-27 21:09 | PD ---
HPI Chief Complaint: Dizziness Time Seen by Provider: 20:39 Travel History International Travel<30 days: No Contact w/Intl Traveler<30days: No Traveled to known affect area: No History of Present Illness HPI This is a 57-year-old male with a history of hypertension, COPD, alcohol abuse, who presents here with complaints of not feeling right, depression and suicidal ideation. According to the patient in the paramedics, he was brought to [facility] yesterday after being found intoxicated at a local restaurant. Patient was discharged this morning after he sobered up. At the time of evaluation yesterday he had a blood alcohol level in the 400s. The patient presents here today stating he just does not feel right. He reports that he is feeling depressed as well. He had nausea vomiting prior to arrival. When asked of the patient is feeling suicidal, patient reports that he has. When asked if he has a plan, he reports that he has several ways that he could hurt himself but no specific plan at this time. He is asking for help. He states that he has had recent family deaths over the last 1-1/2 years that of made him more depressed. He denies drinking any alcohol today since being discharged from [facility]. PFSH Past Medical History Hx Anticoagulant Therapy: No (asa 81mg) Arthritis: No Asthma: No Autoimmune Disease: No Blood Disorders: No Anxiety: Yes Depression: Yes Heart Rhythm Problems: No Cancer: No Cardiovascular Problems: Yes (htn on meds) High Cholesterol: No Chemotherapy: No Chest Pain: No Congestive Heart Failure: No COPD: Yes Cerebrovascular Accident: Yes (TIA) Diabetes: No Diminished Hearing: No Endocrine: No GERD: Yes Glaucoma: No Genitourinary: No Headaches: No Hepatitis: No Hiatal Hernia: No Hypertension: Yes Immune Disorder: No Kidney Stones: No Musculoskeletal: No Neurologic: No Psychiatric: No Reproductive: No Respiratory: Yes (copd) Immunizations Current: No Migraines: No Myocardial Infarction: No Radiation Therapy: No Renal Failure: Yes Seizures: No Sickle Cell Disease: No Sleep Apnea: No Thyroid Disease: No Ulcer: No Past Surgical History Abdominal Surgery: Yes (APPENDECTOMY) AICD: No Appendectomy: Yes Arteriovenous Shunt: No Cardiac Surgery: No Cholecystectomy: No Ear Surgery: No Endocrine Surgery: No Eye Surgery: No Genitourinary Surgery: No Gynecologic Surgery: No Insulin Pump: No Joint Replacement: No Oral Surgery: No Pacemaker: No Thoracic Surgery: No Other Surgery: Yes Social History Alcohol Use: Yes (DAILY, STATES LAST DRINK WAS 10/09/17) Tobacco Use: Yes (10/12 PPD) Substance Use: Yes (MARIJUANA OCCASIONALLY) Allergies-Medications (Allergen,Severity, Reaction): Coded Allergies: No Known Allergies (Verified Adverse Reaction, Unknown, 12/21/17) Reported Meds & Prescriptions Reported Meds & Active Scripts Active Lisinopril 10 Mg Tab 10 Mg PO DAILY 30 Days Reported Pantoprazole (Pantoprazole Sodium) 20 Mg Tab 20 Mg PO BID Aspirin 81 Mg Chew 81 Mg CHEW DAILY Buspirone (Buspirone HCl) 15 Mg Tab 15 Mg PO TID Amlodipine (Amlodipine Besylate) 10 Mg Tab 10 Mg PO DAILY Albuterol Neb (Albuterol Sulfate) 0.63 Mg/3 Ml Neb 0.63 Mg NEB Q6HR NEB PRN Ventolin Hfa 18 GM Inh (Albuterol Sulfate) 90 Mcg/Act Aer 2 Puff INH TID Review of Systems Except as stated in HPI: all other systems reviewed are Neg General / Constitutional: No: Fever, Chills HENT: No: Headaches, Neck Pain Cardiovascular: Positive: Chest Pain or Discomfort (Chest wall discomfort. Patient is not sure whether he fell or not.), No: Palpitations, Irregular Rhythm Respiratory: No: Cough, Shortness of Breath Gastrointestinal: Positive: Nausea, Vomiting, No: Diarrhea, Abdominal Pain Genitourinary: No: Dysuria, Incontinence Musculoskeletal: Positive: Pain (Chest wall discomfort), No: Weakness Skin: No Rash, No Lesions Neurologic: Positive: Dizziness, No: Weakness, Headache Psychiatric: Positive: Depression, Suicidal Ideations, Substance Abuse, No: Homicidal Ideation Physical Exam Narrative GENERAL: Well-nourished, well-developed patient, in no acute respiratory distress.. SKIN: Focused skin assessment warm/dry. HEAD: Normocephalic/atraumatic. EYES: No scleral icterus. No injection or drainage. NECK: Supple, trachea midline. No JVD or lymphadenopathy. CARDIOVASCULAR: Regular rate and rhythm without murmurs, gallops, or rubs. She has tenderness to palpation on his anterior chest wall bilaterally. There is no crepitance or deformity noted. RESPIRATORY: Breath sounds equal bilaterally. No accessory muscle use. GASTROINTESTINAL: Abdomen soft, non-tender, nondistended. No rebound or guarding. MUSCULOSKELETAL: No cyanosis, or edema. NEUROLOGICAL: Awake and alert. Cranial nerves II through XII intact. Motor and sensory grossly within normal limits. Five out of 5 muscle strength in all muscle groups. Normal speech. PSYCHIATRIC: Emotionally labile, tearful. Data Data Last Documented VS Vital Signs Date Time Temp Pulse Resp B/P (MAP) Pulse Ox O2 Delivery O2 Flow Rate FiO2 01/28/18 03:39 62 16 170/66 (100) 96 01/27/18 20:42 97.6 Orders Orders Complete Blood Count With Diff (01/27/18 20:39) Comprehensive Metabolic Panel (01/27/18 20:39) Thyroid Stimulating Hormone (01/27/18 20:39) Ct Brain W/O Iv Contrast(Rout) (01/27/18 20:39) Blood Glucose (01/27/18 20:39) Ecg Monitoring (01/27/18 20:39) Iv Access Insert/Monitor (01/27/18 20:39) Oximetry (01/27/18 20:39) Sodium Chloride 0.9% Flush (Ns Flush) (01/27/18 20:45) Sodium Chlor 0.9% 1000 Ml Inj (Ns 1000 M (01/27/18 20:39) Drug Screen, Random Urine (01/27/18 20:39) Alcohol (Ethanol) (01/27/18 20:39) Chest, Single Ap (01/27/18 20:50) Psych Screen (01/27/18 22:04) Alcohol Withdrawal Asmt-Ciwa ONCE (01/27/18 22:04) Flumazenil Inj (Romazicon Inj) (01/27/18 22:15) Lorazepam (Ativan) (01/27/18 22:15) Lorazepam Inj (Ativan Inj) (01/27/18 22:15) Lorazepam (Ativan) (01/27/18 22:15) Lorazepam Inj (Ativan Inj) (01/27/18 22:15) Lorazepam Inj (Ativan Inj) (01/27/18 22:15) Lorazepam Inj (Ativan Inj) (01/27/18 22:15) Hydralazine Inj (Apresoline Inj) (01/28/18 02:00) Labs Laboratory Tests Test 01/27/18 20:51 White Blood Count 8.7 TH/MM3 Red Blood Count 4.25 MIL/MM3 Hemoglobin 14.6 GM/DL Hematocrit 41.1 % Mean Corpuscular Volume 96.8 FL Mean Corpuscular Hemoglobin 34.3 PG Mean Corpuscular Hemoglobin Concent 35.5 % Red Cell Distribution Width 14.1 % Platelet Count 176 TH/MM3 Mean Platelet Volume 8.8 FL Neutrophils (%) (Auto) 74.4 % Lymphocytes (%) (Auto) 14.5 % Monocytes (%) (Auto) 9.8 % Eosinophils (%) (Auto) 0.7 % Basophils (%) (Auto) 0.6 % Neutrophils # (Auto) 6.5 TH/MM3 Lymphocytes # (Auto) 1.3 TH/MM3 Monocytes # (Auto) 0.9 TH/MM3 Eosinophils # (Auto) 0.1 TH/MM3 Basophils # (Auto) 0.1 TH/MM3 CBC Comment DIFF FINAL Differential Comment Blood Urea Nitrogen 12 MG/DL Creatinine 1.06 MG/DL Random Glucose 93 MG/DL Total Protein 6.9 GM/DL Albumin 3.2 GM/DL Calcium Level 8.8 MG/DL Alkaline Phosphatase 124 U/L Aspartate Amino Transf (AST/SGOT) 290 U/L Alanine Aminotransferase (ALT/SGPT) 251 U/L Total Bilirubin 0.8 MG/DL Sodium Level 142 MEQ/L Potassium Level 4.4 MEQ/L Chloride Level 106 MEQ/L Carbon Dioxide Level 28.4 MEQ/L Anion Gap 8 MEQ/L Estimat Glomerular Filtration Rate 73 ML/MIN Thyroid Stimulating Hormone 3rd Gen 1.500 uIU/ML Ethyl Alcohol Level LESS THAN 3 MG/DL [facility] Medical Decision Making Medical Screen Exam Complete: Yes Emergency Medical Condition: Yes Differential Diagnosis Substance-induced mood disorder. Depression. Metabolic derangement. Narrative Course 57-year-old male with a history of alcoholism, who presents today with complaints of depression and not feeling normal. Patient was seen yesterday for alcohol intoxication with a blood alcohol level 400. Patient was discharged home and apparently went to a friend's house. Friend states that he is just not his normal self. The patient is very tearful and emotional stating that he wishes to . He was placed on a Hyman act. Blood alcohol level was nondetectable. His blood pressure was noted to be elevated. He has been given hydralazine, 10 mg IV 1 dose. He will be medically cleared for psychiatric evaluation. He has had [facility] protocol ordered. Diagnosis Primary Impression: Depression Additional Impressions: Suicidal ideation Alcohol abuse Hypertension Deangelo Mcnulty MD Jan 27, 2018 21:09
[2018-01-27 21:14] VITALS: BP 191/104; PULSE 68; RESP 18; O2SAT 98
[2018-01-27 21:18] LABS: ALT (GPT) 251 U/L (12-78)
[2018-01-27 21:24] LABS: ALBUMIN 3.2 GM/DL (3.4-5.0); AST (GOT) 290 U/L (15-37); BICARBONATE 28.4 MEQ/L (21.0-32.0); BLOOD UREA NITROGEN 12 MG/DL (7-18); CALCIUM 8.8 MG/DL (8.5-10.1); CHLORIDE 106 MEQ/L (98-107); CREATININE 1.06 MG/DL (0.60-1.30); GLOMERULAR FILTRATION RATE 73 ML/MIN (>89); GLUCOSE,RANDOM 93 MG/DL (74-106); SODIUM (NA) 142 MEQ/L (136-145)
[2018-01-27 21:28] LABS: ALKALINE PHOSPHATASE 124 U/L (45-117); TOTAL BILIRUBIN ADULT 0.8 MG/DL (0.2-1.0); TOTAL PROTEIN 6.9 GM/DL (6.4-8.2)
--- NOTE | 2018-01-27 21:28 | RADRPT ---
EXAM DATE/TIME: 01/27/2018 20:53 [facility] COMPARISON: CT BRAIN W/O CONTRAST, January 26, 2018, 23:33. INDICATIONS : Dizziness. RADIATION DOSE: 37.76 CTDIvol (mGy) MEDICAL HISTORY : Cerebrovascular disease. Cardiovascular disease Gastroesophageal reflux disease. Renal failure SURGICAL HISTORY : Appendectomy. ENCOUNTER: Initial ACUITY: 1 day PAIN SCALE: 2/10 LOCATION: cranial TECHNIQUE: Multiple contiguous axial images were obtained of the head. Using automated exposure control and adj ustment of the mA and/or kV according to patient size, radiation dose was kept as low as reasonably a chievable to obtain optimal diagnostic quality images. DICOM format image data is available electro nically for review and comparison. FINDINGS: CEREBRUM: The ventricles are normal for age. No evidence of midline shift, mass lesion, hemorrhage or acute in farction. No extra-axial fluid collections are seen. POSTERIOR FOSSA: The cerebellum and brainstem are intact. The 4th ventricle is midline. The cerebellopontine angle i s unremarkable. EXTRACRANIAL: The visualized portion of the orbits is intact. SKULL: The calvaria is intact. No evidence of skull fracture. CONCLUSION: Normal examination for a patient of this age. Fermin Calzada MD on January 27, 2018 at 21:22 Board Certified Radiologist. This report was verified electronically.
--- NOTE | 2018-01-27 21:29 | RADRPT ---
EXAM DATE/TIME: 01/27/2018 21:00 [facility] COMPARISON: No previous studies available for comparison. INDICATIONS : Cough. Congestion. MEDICAL HISTORY : None. SURGICAL HISTORY : None. ENCOUNTER: Initial ACUITY: 3 days PAIN SCORE: 6/10 LOCATION: Bilateral chest FINDINGS: A single view of the chest demonstrates the lungs to be symmetrically aerated without evidence of mas s, infiltrate or effusion. Peribronchial thickening without focal infiltrate. The cardiomediastinal c ontours are unremarkable. Remote right clavicle fracture. CONCLUSION: 1. Peribronchial thickening present without focal infiltrate. Remote right clavicle fracture. Fermin Calzada MD on January 27, 2018 at 21:26 Board Certified Radiologist. This report was verified electronically.
[2018-01-27] MEDS ORDERED: LORazepam 2 MG TAB PO PRN (22:15)
[2018-01-27] MEDS ORDERED: FLUMAZENIL 0.5 MG/5 ML VIAL IV PUSH PRN (22:15)
[2018-01-27] MEDS ORDERED: LORazepam 1 MG TAB PO PRN (22:15)
[2018-01-27] MEDS ORDERED: LORazepam 2 MG/ML VIAL IV PUSH PRN ×3 (22:15)
[2018-01-27 22:41] VITALS: BP 186/77; PULSE 59; RESP 16; O2SAT 95
[2018-01-27] MEDS: LORazepam 2 MG/ML VIAL IV PUSH PRN (22:50)
[2018-01-28] VITALS (7 sets, daily range): BP systolic 167–207; BP diastolic 66–118; PULSE 60–80; RESP 14–18; O2SAT 95–98
[2018-01-28] MEDS ORDERED: hydrALAZINE HCL 20 MG/ML VIAL IV PUSH ONE (02:00)
[2018-01-28] MEDS: LORazepam 2 MG/ML VIAL IV PUSH PRN (11:40)
[2018-01-28] MEDS ORDERED: LISINOPRIL 10 MG TAB PO ONE (18:00)
--- NOTE | 2018-01-29 00:28 | EKG ---
Date Performed: 01/27/2018 Time Performed: 20:40:27 PTAGE: 57 years EKG: Sinus rhythm POOR R WAVE PROGRESSION, CANNOT RULE OUT ANTERIOR MYOCARDIAL INFARCTION, MOST LIKELY NORMAL VARIANT PREVIOUS TRACING : 11/28/2017 16.03 Since the previous tracing, no significant change not ed DOCTOR: Chi Polk Interpretating Date/Time 01/29/2018 00:26:37
[2018-01-29] MEDS ORDERED: traZODone HCL 50 MG TAB PO ONE (00:45)
--- NOTE | 2018-01-29 10:38 | PD ---
Physical Exam Time Seen by Provider: 10:[address] Arriaga has evaluated the patient, lifted the Hyman act and cleared the patient for discharge. Data Data Last Documented VS Vital Signs Date Time Temp Pulse Resp B/P (MAP) Pulse Ox O2 Delivery O2 Flow Rate FiO2 01/28/18 21:38 64 16 167/86 (113) 95 01/28/18 17:53 Room Air 01/27/18 20:42 97.6 Orders Orders Complete Blood Count With Diff (01/27/18 20:39) Comprehensive Metabolic Panel (01/27/18 20:39) Thyroid Stimulating Hormone (01/27/18 20:39) Ct Brain W/O Iv Contrast(Rout) (01/27/18 20:39) Blood Glucose (01/27/18 20:39) Ecg Monitoring (01/27/18 20:39) Iv Access Insert/Monitor (01/27/18 20:39) Oximetry (01/27/18 20:39) Sodium Chloride 0.9% Flush (Ns Flush) (01/27/18 20:45) Sodium Chlor 0.9% 1000 Ml Inj (Ns 1000 M (01/27/18 20:39) Drug Screen, Random Urine (01/27/18 20:39) Alcohol (Ethanol) (01/27/18 20:39) Chest, Single Ap (01/27/18 20:50) Psych Screen (01/27/18 22:04) Alcohol Withdrawal Asmt-Ciwa ONCE (01/27/18 22:04) Flumazenil Inj (Romazicon Inj) (01/27/18 22:15) Lorazepam (Ativan) (01/27/18 22:15) Lorazepam Inj (Ativan Inj) (01/27/18 22:15) Lorazepam (Ativan) (01/27/18 22:15) Lorazepam Inj (Ativan Inj) (01/27/18 22:15) Lorazepam Inj (Ativan Inj) (01/27/18 22:15) Lorazepam Inj (Ativan Inj) (01/27/18 22:15) Hydralazine Inj (Apresoline Inj) (01/28/18 02:00) Diet Regular Basic (01/28/18 Breakfast) Electrocardiogram (01/27/18 20:40) Diet Regular Basic (01/28/18 Lunch) Diet Regular Basic (01/28/18 Dinner) Lisinopril (Prinivil) (01/28/18 18:00) Amlodipine (Norvasc) (01/28/18 18:00) Trazodone (Desyrel) (01/29/18 00:45) Diet Regular Basic (01/29/18 Breakfast) Labs Laboratory Tests Test 01/27/18 09:37 01/27/18 20:51 Urine Opiates Screen NEG Urine Barbiturates Screen NEG Urine Amphetamines Screen NEG Urine Benzodiazepines Screen NEG Urine Cocaine Screen NEG Urine Cannabinoids Screen POS White Blood Count 8.7 TH/MM3 Red Blood Count 4.25 MIL/MM3 Hemoglobin 14.6 GM/DL Hematocrit 41.1 % Mean Corpuscular Volume 96.8 FL Mean Corpuscular Hemoglobin 34.3 PG Mean Corpuscular Hemoglobin Concent 35.5 % Red Cell Distribution Width 14.1 % Platelet Count 176 TH/MM3 Mean Platelet Volume 8.8 FL Neutrophils (%) (Auto) 74.4 % Lymphocytes (%) (Auto) 14.5 % Monocytes (%) (Auto) 9.8 % Eosinophils (%) (Auto) 0.7 % Basophils (%) (Auto) 0.6 % Neutrophils # (Auto) 6.5 TH/MM3 Lymphocytes # (Auto) 1.3 TH/MM3 Monocytes # (Auto) 0.9 TH/MM3 Eosinophils # (Auto) 0.1 TH/MM3 Basophils # (Auto) 0.1 TH/MM3 CBC Comment DIFF FINAL Differential Comment Blood Urea Nitrogen 12 MG/DL Creatinine 1.06 MG/DL Random Glucose 93 MG/DL Total Protein 6.9 GM/DL Albumin 3.2 GM/DL Calcium Level 8.8 MG/DL Alkaline Phosphatase 124 U/L Aspartate Amino Transf (AST/SGOT) 290 U/L Alanine Aminotransferase (ALT/SGPT) 251 U/L Total Bilirubin 0.8 MG/DL Sodium Level 142 MEQ/L Potassium Level 4.4 MEQ/L Chloride Level 106 MEQ/L Carbon Dioxide Level 28.4 MEQ/L Anion Gap 8 MEQ/L Estimat Glomerular Filtration Rate 73 ML/MIN Thyroid Stimulating Hormone 3rd Gen 1.500 uIU/ML Ethyl Alcohol Level LESS THAN 3 MG/DL [facility] Supervised Visit with [facility]: No Narrative Course Dr. Arriaga has evaluated the patient, lifted the Hyman act and cleared the patient for discharge. Patient contracts safety. Denies suicidal or homicidal ideations. Patient will be provided community resource packet to MIKEL for follow-up. Has friends and family for support. Patient was medically cleared by alternate provider prior to psych screening. Patient has been evaluated by psychiatry and and is now cleared for discharge. Diagnosis Primary Impression: Depression Additional Impressions: Alcohol abuse Suicidal ideation Hypertension Referrals: [facility] (PCP) AL[facility]SS[facility] (Out patient) [facility] Primary Care Physician Psychiatrist [facility] Patient Instructions: General Instructions, Alcohol Use Disorder (ED) Departure Forms: Tests/Procedures Additional Instruction: Contract safety to your self and others Follow-up with psychiatry Follow-up with primary care provider Follow-up with Jabier Nicole Return to the emergency department immediately with worsening of symptoms Med/Other Pt SpecificInfo: No Change to Meds, No Meds Exist/No RX given Disposition: 01 DISCHARGE HOME Condition: Stable Aimee Cuba Jan 29, 2018 10:38
--- NOTE | 2018-01-29 13:48 | PD.PSY.CON ---
Provisional Diagnosis Admission Date Solomons I. Alcohol-induced mood disorder history of PTSD and anxiety, alcohol use disorder Solomons II. Deferred Solomons III. COPD, PE, hypertension History of Present Illness Service Psychiatry Consult Requested By ER Reason for Consult Suicidal ideation Primary Care Physician [facility] HPI The patient was seen this morning at 8:30 AM This is a 57-year-old man, domiciled in [facility], single, unemployed, supported by [facility], , with psychiatric history of PTSD, anxiety , no previous psychiatric hospitalizations, no previous suicide attempts, alcohol use disorder, [facility], with a medical history of hypertension, COPD, who presents here with complaints of not feeling right, depression and suicidal ideation. According to the patient in the paramedics, he was brought to [facility] yesterday after being found intoxicated at a local restaurant. Patient was discharged this morning after he sobered up. At the time of evaluation yesterday he had a blood alcohol level in the 400s. The patient presents here today stating he just does not feel right. He reports that he is feeling depressed as well. He had nausea vomiting prior to arrival. When asked of the patient is feeling suicidal, patient reports that he has. When asked if he has a plan, he reports that he has several ways that he could hurt himself but no specific plan at this time. He is asking for help. He states that he has had recent family deaths over the last 1-1/2 years that of made him more depressed. The patient was seen today for psychiatric evaluation. The patient reports that he feels in a good mood, optimistic, he says that his words in the ER were misunderstood, "I never say that he wanted to kill, I was just complaining of my medical problems and I was frustrated". At this moment the patient denies depressive symptoms, denies anxiety, denies alexis and psychosis. 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 He does report daily use of alcohol, occasional use of marijuana. Review of Systems Constitutional: DENIES: Diaphoretic episodes, Fatigue, Fever, Weight gain, Weight loss, Chills, Dizziness, Change in appetite, Night Sweats Endocrine: DENIES: Heat/cold intolerance, Polydipsia, Polyuria, Polyphagia Eyes: DENIES: Blurred vision, Diplopia, Eye inflammation, Eye pain, Vision loss , Photosensitivity, Double Vision Ears, nose, mouth, throat: DENIES: Tinnitus, Hearing loss, Vertigo, Nasal discharge, Oral lesions, Throat pain, Hoarseness, Ear Pain, Running Nose, Epistaxis, Sinus Pain, Toothache, Odynophagia Respiratory: DENIES: Apneas, Cough, Snoring, Wheezing, Hemoptysis, Sputum production, Shortness of breath Cardiovascular: DENIES: Chest pain, Palpitations, Syncope, Dyspnea on Exertion , PND, Lower Extremity Edema, Orthopnea, Claudication Gastrointestinal: DENIES: Abdominal pain, Black stools, Bloody stools, Constipation, Diarrhea, Nausea, Vomiting, Difficulty Swallowing, Anorexia Genitourinary: DENIES: Sexual dysfunction, Urinary frequency, Urinary incontinence, Urgency, Hematuria, Dysuria, Nocturia, Penile Discharge, Testicular Pain, Testicular Swelling Musculoskeletal: DENIES: Joint pain, Muscle aches, Stiffness, Joint Swelling, Back pain, Neck pain Integumentary: DENIES: Abnormal pigmentation, Nail changes, Pruritus, Rash Hematologic/lymphatic: DENIES: Bruising, Lymphadenopathy Immunologic/allergic: DENIES: Eczema, Urticaria Psychiatric: DENIES: Anxiety, Confusion, Mood changes, Depression, Hallucinations, Agitation, Suicidal Ideation, Homicidal Ideation, Delusions Past Family Social History Coded Allergies: No Known Allergies (Verified Adverse Reaction, Unknown, 12/21/17) Active Scripts Lisinopril (Lisinopril) 10 Mg Tab, 10 MG PO DAILY for hypertension for 30 Days, #30 TAB Prov:Betzaida Philip 11/30/17 Reported Medications Pantoprazole (Pantoprazole) 20 Mg Tab, 20 MG PO BID for Reflux, #30 TAB 0 Refills 10/11/17 Aspirin (Aspirin) 81 Mg Chew, 81 MG CHEW DAILY, TAB 0 Refills 10/11/17 Buspirone (Buspirone) 15 Mg Tab, 15 MG PO TID for Anxiety, TAB 0 Refills 10/11/17 Amlodipine (Amlodipine) 10 Mg Tab, 10 MG PO DAILY for Blood Pressure Management , #30 TAB 0 Refills 10/11/17 Albuterol Neb (Albuterol Neb) 0.63 Mg/3 Ml Neb, 0.63 MG NEB Q6HR NEB Y for SOB/ WHEEZING, #25 NEBULE 0 Refills 08/11/16 Albuterol 18 GM Inh (Ventolin Hfa 18 GM Inh) 90 Mcg/Act Aer, 2 PUFF INH TID for SHORTNESS OF BREATH, #1 INHALER 0 Refills 08/11/16 Family Psych History No family psychiatric history Social History Patient was born and raised in [place], he lives in [facility], single, , father of 2 boys, on SSI, highest level of education is ninth grade Patient's Strengths (min. 2) Verbal communication, service, Physical Exam Vital Signs Vital Signs Date Time Temp Pulse Resp B/P (MAP) Pulse Ox O2 Delivery O2 Flow Rate FiO2 01/29/18 13:03 01/28/18 21:38 64 16 95 01/28/18 17:53 Room Air 01/27/18 20:42 97.6 Mental Status Examination Appearance: Appropriate Consciousness: Alert Orientation: x4 Motor Activity: Normal gait Speech: Unremarkable Language: Adequate Fund of Knowledge: Adequate Attention and Concentration: Adequate Memory: Unremarkable Mood: Appropriate Affect: Appropriate Thought Process & Associations: Intact Thought Content: Appropriate Hallucination Type: None Delusion Type: None Suicidal Ideation: No Suicidal Plan: No Suicidal Intention: No Homicidal Ideation: No Homicidal Plan: No Homicidal Intention: No Insight: Adequate Judgment: Adequate Assessment & Plan Problem List: (1) Alcohol abuse with alcohol-induced mood disorder ICD Codes: F10.14 - Alcohol abuse with alcohol-induced mood disorder Assessment & Plan: On psychiatric evaluation today the patient is calm, cooperative, and a good spirits. The patient denies depressive symptoms, denies anxiety, denies alexis and psychosis. He denies suicidal and was ideation , he denies visual and auditory hallucinations. The patient reports that he never expressed suicidal ideation, he was misunderstood. 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 He has [facility]. My impression is that his recent suicidal statement in the ER could be the result of alcohol intoxication and also conscious simulation in order to use the hospital as a mcfp and source of narcotics. He does not meet criteria for involuntary psychiatric admission at this point. Will be discharged Assessment & Plan Estimated LOS: days Geovanni Her MD Jan 29, 2018 13:48
== END 2018-01-29 13:04 | disposition home or self-care (01) ==
LOC: NEPE 20:27 → NEPJ 01-29 13:04
DX: F10.10 Alcohol abuse, uncomplicated (principal); I10 Essential (primary) hypertension; R94.31 Abnormal electrocardiogram [ECG] [EKG]; F32.9 Major depressive disorder, single episode, unspecified; J44.9 Chronic obstructive pulmonary disease, unspecified; K21.9 Gastro-esophageal reflux disease without esophagitis; F17.210 Nicotine dependence, cigarettes, uncomplicated; F12.90 Cannabis use, unspecified, uncomplicated; R07.9 Chest pain, unspecified; Z79.82 Long term (current) use of aspirin
CPT/HCPCS: 70450; 71045; 80053; 80307; 84443; 85025; 93005; 96361; 96374; 96375; 99285; J0360; J2060; J7030

== ENCOUNTER 2018-03-06 02:04 | Emergency (ER) | payer OTHER ==
[2018-03-06 02:53] LABS: AUTOMATED NEUTROPHIL # 5.3 TH/MM3 (1.8-7.7); BASOPHIL # 0.1 TH/MM3 (0-0.2); BASOPHIL % 0.8 % (0.0-2.0); EOSINOPHIL # 0.2 TH/MM3 (0-0.4); EOSINOPHIL % 2.1 % (0.0-4.0); HEMATOCRIT 48.1 % (39.0-51.0); HEMOGLOBIN 17.3 GM/DL (13.0-17.0); LYMPH % 38.1 % (9.0-44.0); LYMPHOCYTE # 3.9 TH/MM3 (1.0-4.8); MEAN CELL VOLUME 97.4 FL (80.0-100.0); MEAN PLATELET VOLUME 9.4 FL (7.0-11.0); MONO % 6.3 % (0.0-8.0); MONOCYTE # 0.6 TH/MM3 (0-0.9); NEUT % 52.7 % (16.0-70.0); PLATELET COUNT 210 TH/MM3 (150-450); RED BLOOD COUNT 4.94 MIL/MM3 (4.50-5.90); RED CELL DISTRIBUTION WIDTH 13.9 % (11.6-17.2); WHITE BLOOD COUNT 10.1 TH/MM3 (4.0-11.0)
[2018-03-06] MEDS ORDERED: ALPRAZolam 0.5 MG TAB PO ONE (03:15)
[2018-03-06] MEDS ORDERED: LORazepam 2 MG/ML VIAL IV PUSH PRN ×4 (03:15)
[2018-03-06] MEDS ORDERED: LORazepam 1 MG TAB PO PRN (03:15)
[2018-03-06] MEDS ORDERED: FLUMAZENIL 0.5 MG/5 ML VIAL IV PUSH PRN (03:15)
[2018-03-06] MEDS ORDERED: ONDANSETRON ODT 4 MG TAB PO PRN (03:15)
[2018-03-06] MEDS ORDERED: ACETAMINOPHEN 325 MG TAB PO PRN (03:15)
[2018-03-06] MEDS ORDERED: LORazepam 2 MG TAB PO PRN (03:15)
--- NOTE | 2018-03-06 03:18 | PD ---
HPI Chief Complaint: Psychiatric Symptoms Time Seen by Provider: 02:34 Travel History International Travel<30 days: No Contact w/Intl Traveler<30days: No History of Present Illness HPI Patient is a 57-year-old male [facility] under H[facility] for psychiatric evaluation. Apparently patient called 911 asking for help and he hung up. Police went to his home and he told the police that he wanted to . Patient was visibly upset and advised it was because of and he had PTSD. Patient reported to me that he is an alcoholic, he drinks a bottle of whiskey every day. 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 He states he feels as if he is taking handouts from the government because he gets disability benefits. 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 Patient states he is only been drinking alcohol for a few years. He states he wants God to take him home. Patient is visibly upset and tearful. He denies any physical complaints at this time. Symptom onset is unknown, symptoms are moderate to severe nature. Unknown exacerbating factors. PFSH Past Medical History Anxiety: Yes Depression: Yes COPD: Yes Cerebrovascular Accident: Yes (TIA) GERD: Yes Hypertension: Yes Respiratory: Yes (copd) Renal Failure: Yes Past Surgical History Abdominal Surgery: Yes (APPENDECTOMY) AICD: No Appendectomy: Yes Arteriovenous Shunt: No Cardiac Surgery: No Cholecystectomy: No Ear Surgery: No Endocrine Surgery: No Eye Surgery: No Genitourinary Surgery: No Gynecologic Surgery: No Insulin Pump: No Joint Replacement: No Oral Surgery: No Pacemaker: No Thoracic Surgery: No Other Surgery: Yes Social History Alcohol Use: Yes (DAILY) Tobacco Use: Yes (10/12 PPD) Substance Use: Yes Allergies-Medications (Allergen,Severity, Reaction): Coded Allergies: No Known Allergies (Verified Adverse Reaction, Unknown, 12/21/17) Reported Meds & Prescriptions Reported Meds & Active Scripts Active Lisinopril 10 Mg Tab 10 Mg PO DAILY 30 Days Reported Pantoprazole (Pantoprazole Sodium) 20 Mg Tab 20 Mg PO BID Aspirin 81 Mg Chew 81 Mg CHEW DAILY Buspirone (Buspirone HCl) 15 Mg Tab 15 Mg PO TID Amlodipine (Amlodipine Besylate) 10 Mg Tab 10 Mg PO DAILY Albuterol Neb (Albuterol Sulfate) 0.63 Mg/3 Ml Neb 0.63 Mg NEB Q6HR NEB PRN Ventolin Hfa 18 GM Inh (Albuterol Sulfate) 90 Mcg/Act Aer 2 Puff INH TID Review of Systems Except as stated in HPI: all other systems reviewed are Neg Psychiatric: Positive: Depression, Suicidal Ideations, Substance Abuse Physical Exam Narrative GENERAL: Well-developed, well-nourished, alert, intoxicated appearing male. Appears upset, no acute distress. SKIN: Warm and dry. HEAD: Atraumatic. Normocephalic. EYES: Pupils equal and round. No scleral icterus. No injection or drainage. ENT: No nasal bleeding or discharge. Mucous membranes pink and moist. NECK: Trachea midline. No JVD. CARDIOVASCULAR: Regular rate and rhythm. RESPIRATORY: No accessory muscle use. Clear to auscultation. Breath sounds equal bilaterally. GASTROINTESTINAL: Abdomen soft, non-tender, nondistended. Hepatic and splenic margins not palpable. MUSCULOSKELETAL: Extremities without clubbing, cyanosis, or edema. No obvious deformities. NEUROLOGICAL: Awake and alert. No obvious cranial nerve deficits. Motor grossly within normal limits. Five out of 5 muscle strength in the arms and legs. Normal speech. PSYCHIATRIC: Depressed mood and affect; insight and judgment impaired. Data Data Last Documented VS Vital Signs Date Time Temp Pulse Resp B/P (MAP) Pulse Ox O2 Delivery O2 Flow Rate FiO2 03/06/18 03:19 98.7 104 18 149/81 (103) 96 Orders Orders Complete Blood Count With Diff (03/06/18 02:34) Comprehensive Metabolic Panel (03/06/18 02:34) Thyroid Stimulating Hormone (03/06/18 02:34) Urinalysis - C+S If Indicated (03/06/18 02:34) Psych Screen (03/06/18 02:34) Drug Screen, Random Urine (03/06/18 02:34) Alcohol (Ethanol) (03/06/18 02:34) Salicylates (Aspirin) (03/06/18 02:34) Tylenol (Acetaminophen) (03/06/18 02:34) Alprazolam (Xanax) (03/06/18 03:15) Diet Regular Basic (03/06/18 Breakfast) Alcohol Withdrawal Asmt-Ciwa ONCE (03/06/18 03:05) Ondansetron Odt (Zofran Odt) (03/06/18 03:15) Acetaminophen (Tylenol) (03/06/18 03:15) Flumazenil Inj (Romazicon Inj) (03/06/18 03:15) Lorazepam (Ativan) (03/06/18 03:15) Lorazepam Inj (Ativan Inj) (03/06/18 03:15) Lorazepam (Ativan) (03/06/18 03:15) Lorazepam Inj (Ativan Inj) (03/06/18 03:15) Lorazepam Inj (Ativan Inj) (03/06/18 03:15) Lorazepam Inj (Ativan Inj) (03/06/18 03:15) Labs Laboratory Tests Test 03/06/18 02:15 White Blood Count 10.1 TH/MM3 Red Blood Count 4.94 MIL/MM3 Hemoglobin 17.3 GM/DL Hematocrit 48.1 % Mean Corpuscular Volume 97.4 FL Mean Corpuscular Hemoglobin 35.0 PG Mean Corpuscular Hemoglobin Concent 36.0 % Red Cell Distribution Width 13.9 % Platelet Count 210 TH/MM3 Mean Platelet Volume 9.4 FL Neutrophils (%) (Auto) 52.7 % Lymphocytes (%) (Auto) 38.1 % Monocytes (%) (Auto) 6.3 % Eosinophils (%) (Auto) 2.1 % Basophils (%) (Auto) 0.8 % Neutrophils # (Auto) 5.3 TH/MM3 Lymphocytes # (Auto) 3.9 TH/MM3 Monocytes # (Auto) 0.6 TH/MM3 Eosinophils # (Auto) 0.2 TH/MM3 Basophils # (Auto) 0.1 TH/MM3 CBC Comment AUTO DIFF Differential Comment AUTO DIFF CONFIRMED Blood Urea Nitrogen 22 MG/DL Creatinine 1.39 MG/DL Random Glucose 107 MG/DL Total Protein 7.9 GM/DL Albumin 3.6 GM/DL Calcium Level 7.7 MG/DL Alkaline Phosphatase 149 U/L Aspartate Amino Transf (AST/SGOT) 243 U/L Alanine Aminotransferase (ALT/SGPT) 181 U/L Total Bilirubin 0.6 MG/DL Sodium Level 142 MEQ/L Potassium Level 3.9 MEQ/L Chloride Level 104 MEQ/L Carbon Dioxide Level 20.6 MEQ/L Anion Gap 17 MEQ/L Estimat Glomerular Filtration Rate 53 ML/MIN Thyroid Stimulating Hormone 3rd Gen 1.510 uIU/ML Salicylates Level 3.4 MG/DL Acetaminophen Level LESS THAN 2.0 MCG/ML Ethyl Alcohol Level 248 MG/DL MDM Medical Decision Making Medical Screen Exam Complete: Yes Emergency Medical Condition: Yes Interpretation(s) Laboratory Tests Test 03/06/18 02:15 White Blood Count 10.1 TH/MM3 Red Blood Count 4.94 MIL/MM3 Hemoglobin 17.3 GM/DL Hematocrit 48.1 % Mean Corpuscular Volume 97.4 FL Mean Corpuscular Hemoglobin 35.0 PG Mean Corpuscular Hemoglobin Concent 36.0 % Red Cell Distribution Width 13.9 % Platelet Count 210 TH/MM3 Mean Platelet Volume 9.4 FL Neutrophils (%) (Auto) 52.7 % Lymphocytes (%) (Auto) 38.1 % Monocytes (%) (Auto) 6.3 % Eosinophils (%) (Auto) 2.1 % Basophils (%) (Auto) 0.8 % Neutrophils # (Auto) 5.3 TH/MM3 Lymphocytes # (Auto) 3.9 TH/MM3 Monocytes # (Auto) 0.6 TH/MM3 Eosinophils # (Auto) 0.2 TH/MM3 Basophils # (Auto) 0.1 TH/MM3 CBC Comment AUTO DIFF Differential Comment AUTO DIFF CONFIRMED Blood Urea Nitrogen 22 MG/DL Creatinine 1.39 MG/DL Random Glucose 107 MG/DL Total Protein 7.9 GM/DL Albumin 3.6 GM/DL Calcium Level 7.7 MG/DL Alkaline Phosphatase 149 U/L Aspartate Amino Transf (AST/SGOT) 243 U/L Alanine Aminotransferase (ALT/SGPT) 181 U/L Total Bilirubin 0.6 MG/DL Sodium Level 142 MEQ/L Potassium Level 3.9 MEQ/L Chloride Level 104 MEQ/L Carbon Dioxide Level 20.6 MEQ/L Anion Gap 17 MEQ/L Estimat Glomerular Filtration Rate 53 ML/MIN Thyroid Stimulating Hormone 3rd Gen 1.510 uIU/ML Salicylates Level 3.4 MG/DL Acetaminophen Level LESS THAN 2.0 MCG/ML Ethyl Alcohol Level 248 MG/DL Vital Signs Date Time Temp Pulse Resp B/P (MAP) Pulse Ox O2 Delivery O2 Flow Rate FiO2 03/06/18 03:19 98.7 104 18 149/81 (103) 96 Differential Diagnosis Mood disorder versus substance abuse versus depression versus suicidal ideations versus metabolic abnormality versus other Narrative Course Patient is a 57-year-old male presenting under Hyman act for psychiatric evaluation secondary to suicidal ideations. Patient appears intoxicated, he is also reporting to me that he just wants God to take him home. Patient was placed on a CIWA protocol due to his chronic alcoholism. Mental health screening discussed with the patient. Psychiatric screen ordered. CBC with no acute findings Chemistry with mildly elevated BUN and creatinine when compared to prior result in January 2018. Slight hemolysis noted in the potassium level of 3.9. Will order potassium replacement. Patient was placed on CIWA protocol He was given an oral dose of Xanax now. Blood alcohol level is 248, acetaminophen and salicylate levels are unremarkable. Oral fluids encouraged. Patient is medically clear for psychiatric evaluation. Diagnosis Primary Impression: Acute alcohol intoxication Qualified Codes: F10.929 - Alcohol use, unspecified with intoxication, unspecified Additional Impressions: Medical clearance for psychiatric admission Acute renal insufficiency Condition: Stable Ericka Hargrove March 06, 2018 03:18
[2018-03-06 03:19] VITALS: BP 149/81; PULSE 104; RESP 18; TEMP 98.7; O2SAT 96
[2018-03-06 03:20] LABS: ALKALINE PHOSPHATASE 149 U/L (45-117); ALT (GPT) 181 U/L (12-78); TOTAL BILIRUBIN ADULT 0.6 MG/DL (0.2-1.0); TOTAL PROTEIN 7.9 GM/DL (6.4-8.2)
[2018-03-06 03:43] LABS: ALBUMIN 3.6 GM/DL (3.4-5.0); AST (GOT) 243 U/L (15-37); BICARBONATE 20.6 MEQ/L (21.0-32.0); BLOOD UREA NITROGEN 22 MG/DL (7-18); CALCIUM 7.7 MG/DL (8.5-10.1); CHLORIDE 104 MEQ/L (98-107); CREATININE 1.39 MG/DL (0.60-1.30); GLOMERULAR FILTRATION RATE 53 ML/MIN (>89); GLUCOSE,RANDOM 107 MG/DL (74-106); SODIUM (NA) 142 MEQ/L (136-145)
[2018-03-06 03:47] LABS: ACETAMINOPHEN LESS THAN 2.0 MCG/ML (10.0-30.0)
[2018-03-06 09:59] VITALS: BP 184/105; PULSE 79; O2SAT 95
--- NOTE | 2018-03-06 11:56 | PD ---
Data Data Last Documented VS Vital Signs Date Time Temp Pulse Resp B/P (MAP) Pulse Ox O2 Delivery O2 Flow Rate FiO2 03/06/18 09:59 79 184/105 (131) 95 03/06/18 03:19 98.7 18 Orders Orders Complete Blood Count With Diff (03/06/18 02:34) Comprehensive Metabolic Panel (03/06/18 02:34) Thyroid Stimulating Hormone (03/06/18 02:34) Urinalysis - C+S If Indicated (03/06/18 02:34) Psych Screen (03/06/18 02:34) Drug Screen, Random Urine (03/06/18 02:34) Alcohol (Ethanol) (03/06/18 02:34) Salicylates (Aspirin) (03/06/18 02:34) Tylenol (Acetaminophen) (03/06/18 02:34) Alprazolam (Xanax) (03/06/18 03:15) Diet Regular Basic (03/06/18 Breakfast) Alcohol Withdrawal Asmt-Ciwa ONCE (03/06/18 03:05) Ondansetron Odt (Zofran Odt) (03/06/18 03:15) Acetaminophen (Tylenol) (03/06/18 03:15) Flumazenil Inj (Romazicon Inj) (03/06/18 03:15) Lorazepam (Ativan) (03/06/18 03:15) Lorazepam Inj (Ativan Inj) (03/06/18 03:15) Lorazepam (Ativan) (03/06/18 03:15) Lorazepam Inj (Ativan Inj) (03/06/18 03:15) Lorazepam Inj (Ativan Inj) (03/06/18 03:15) Lorazepam Inj (Ativan Inj) (03/06/18 03:15) Labs Laboratory Tests Test 03/06/18 02:15 White Blood Count 10.1 TH/MM3 Red Blood Count 4.94 MIL/MM3 Hemoglobin 17.3 GM/DL Hematocrit 48.1 % Mean Corpuscular Volume 97.4 FL Mean Corpuscular Hemoglobin 35.0 PG Mean Corpuscular Hemoglobin Concent 36.0 % Red Cell Distribution Width 13.9 % Platelet Count 210 TH/MM3 Mean Platelet Volume 9.4 FL Neutrophils (%) (Auto) 52.7 % Lymphocytes (%) (Auto) 38.1 % Monocytes (%) (Auto) 6.3 % Eosinophils (%) (Auto) 2.1 % Basophils (%) (Auto) 0.8 % Neutrophils # (Auto) 5.3 TH/MM3 Lymphocytes # (Auto) 3.9 TH/MM3 Monocytes # (Auto) 0.6 TH/MM3 Eosinophils # (Auto) 0.2 TH/MM3 Basophils # (Auto) 0.1 TH/MM3 CBC Comment AUTO DIFF Differential Comment AUTO DIFF CONFIRMED Blood Urea Nitrogen 22 MG/DL Creatinine 1.39 MG/DL Random Glucose 107 MG/DL Total Protein 7.9 GM/DL Albumin 3.6 GM/DL Calcium Level 7.7 MG/DL Alkaline Phosphatase 149 U/L Aspartate Amino Transf (AST/SGOT) 243 U/L Alanine Aminotransferase (ALT/SGPT) 181 U/L Total Bilirubin 0.6 MG/DL Sodium Level 142 MEQ/L Potassium Level 3.9 MEQ/L Chloride Level 104 MEQ/L Carbon Dioxide Level 20.6 MEQ/L Anion Gap 17 MEQ/L Estimat Glomerular Filtration Rate 53 ML/MIN Thyroid Stimulating Hormone 3rd Gen 1.510 uIU/ML Salicylates Level 3.4 MG/DL Acetaminophen Level LESS THAN 2.0 MCG/ML Ethyl Alcohol Level 248 MG/DL MDM Medical Record Reviewed: Yes Supervised Visit with LAWRENCE: No Narrative Course See psychiatry notes. Pancreatic lifted. No medical issues that warrant further hospitalization. Stable for discharge. Diagnosis Primary Impression: Acute alcohol intoxication Qualified Codes: F10.929 - Alcohol use, unspecified with intoxication, unspecified Additional Impressions: Medical clearance for psychiatric admission Acute renal insufficiency Med/Other Pt SpecificInfo: No Change to Meds Disposition: 01 DISCHARGE HOME Condition: Stable Jose M Aleman March 06, 2018 11:56
--- NOTE | 2018-03-06 11:57 | PD ---
History of Present Illness Chief Complaint: Psychiatric Symptoms Time Seen by Provider: 11:45 Travel History International Travel<30 Days: No Contact w/Intl Traveler<30days: No Known affected area: No Legal Status Legal Status: Hyman Act Hyman Act Signed By: Kendy Varma Hyman Act Comment: 2017 @ 0145 History of Present Illness: History of Present Illness HPI Patient is a 57-year-old, , male with history of alcohol dependence, PTSD, anxiety presenting to [facility] under Hyman act for psychiatric evaluation. The Hyman act report alleges that patient called 911 asking for help and he hung up. Police went to his home and he told the police that he wanted to . Patient was visibly upset and advised it was because of and he had PTSD. Patient did not make any attempt at harming himself and admits that he was intoxicated at the time that he made the call. His blood alcohol level on arrival to the ED was 248. The patient was allowed to sober up clinically. He presented no behavioral concerns and no suicidality. Electronic medical record is reviewed. The patient has had several visits to the ED for alcohol related issues as well as for suicidality in contacts of alcohol intoxication. Patient is seen in Main ED. Sury MELGAR present during visit. Patient is clinically sober at this time. He is alert and oriented. The patient does not present any evidence of any psychosis, no alexis or hypomania. Mild symptoms of withdrawal are evident at this time at this time with some mild tremors noted. There for his and no suicidal or homicidal ideation, intent or plan. He does admit to passive suicidal ideation. The patient states that because of his jainism believes he would never harm himself. He admits to feeling remorseful about having called the police and states that he has no recollection of doing so. Patient is requesting to be discharge. States that he has an appointment at the [facility] with his counselor at the beginning of March. PFSH Past Medical History Anxiety: Yes Depression: Yes COPD: Yes Cerebrovascular Accident: Yes (TIA) GERD: Yes Hypertension: Yes Respiratory: Yes (copd) Renal Failure: Yes Tetanus Vaccination: < 5 Years Influenza Vaccination: Yes Past Surgical History Abdominal Surgery: Yes (APPENDECTOMY) AICD: No Appendectomy: Yes Arteriovenous Shunt: No Cardiac Surgery: No Cholecystectomy: No Ear Surgery: No Endocrine Surgery: No Eye Surgery: No Genitourinary Surgery: No Gynecologic Surgery: No Insulin Pump: No Joint Replacement: No Oral Surgery: No Pacemaker: No Thoracic Surgery: No Other Surgery: Yes Psychiatric History Psychiatric History Hx Psychiatric Treatment: No previous psychiatric hospitalization. Receives outpatient care at the [facility] including medications and therapy. No previous history of suicide attempt. History of Inpatient Treatment: Yes Guns or firearms in home: No Social History Born and raised in [place]. Has completed 1/9 grade education. 1 and years ago. Has 2 children. Patient receives SSI. Hx Alcohol Use: Yes (DAILY) Hx Tobacco Use: Yes (10/12 PPD) Hx Substance Use: Yes Substance Use Type: Alcohol Hx of Substance Use Treatment: Yes (Was in rehab at the [facility] approximately 2 years ago. Has attended AA) Family Psychiatric History Mother and sister with unknown mental health history. Allergies-Medications (Allergen,Severity, Reaction): Coded Allergies: No Known Allergies (Verified Adverse Reaction, Unknown, 12/21/17) Reported Meds & Prescriptions Reported Meds & Active Scripts Active Lisinopril 10 Mg Tab 10 Mg PO DAILY 30 Days Reported Pantoprazole (Pantoprazole Sodium) 20 Mg Tab 20 Mg PO BID Aspirin 81 Mg Chew 81 Mg CHEW DAILY Buspirone (Buspirone HCl) 15 Mg Tab 15 Mg PO TID Amlodipine (Amlodipine Besylate) 10 Mg Tab 10 Mg PO DAILY Albuterol Neb (Albuterol Sulfate) 0.63 Mg/3 Ml Neb 0.63 Mg NEB Q6HR NEB PRN Ventolin Hfa 18 GM Inh (Albuterol Sulfate) 90 Mcg/Act Aer 2 Puff INH TID Review of Systems Psychiatric: COMPLAINS OF: Anxiety, Depression Mental Status Examination Appearance: Disheveled Consciousness: Alert Orientation: x4 Motor Activity: Normal gait Speech: Unremarkable Language: Adequate Fund of Knowledge: Adequate Memory: Unremarkable Mood: Appropriate, Anxious Affect: Other (congruent) Thought Process & Associations: Intact, Logical, Goal directed Thought Content: Appropriate Hallucination Type: None Suicidal Ideation: No Suicidal Plan: No Suicidal Intention: No Homicidal Ideation: No Homicidal Plan: No Homicidal Intention: No Insight: Adequate Judgment: Adequate MDM Medical Decision Making Medical Record Reviewed: Yes Assessment/Plan Patient is a 57-year-old, , male with history of alcohol dependence, PTSD, anxiety presenting to [facility] under Hyman act for psychiatric evaluation. The Hyman act report alleges that patient called 911 asking for help and he hung up. Police went to his home and he told the police that he wanted to . Patient was visibly upset and advised it was because of Day and he had PTSD. Patient did not make any attempt at harming himself and admits that he was intoxicated at the time that he made the call. His blood alcohol level on arrival to the ED was 248. The patient was allowed to sober up clinically. He presented no behavioral concerns and no suicidality. The patient at this time does not present acute risk to self. He denies any suicidal or homicidal ideation, intent or plan. The patient is future oriented with adequate protective factors. He has a appointment with his therapist at the beginning of the month and he intends to keep that appointment. The patient has been advised regarding continued use of alcohol and the effects of alcohol on his mood. Encouraged to pursue sobriety through AA. BA lifted. Psychiatrically clear for discharge from the ED. Orders Orders Complete Blood Count With Diff (03/06/18 02:34) Comprehensive Metabolic Panel (03/06/18 02:34) Thyroid Stimulating Hormone (03/06/18 02:34) Urinalysis - C+S If Indicated (03/06/18 02:34) Psych Screen (03/06/18 02:34) Drug Screen, Random Urine (03/06/18 02:34) Alcohol (Ethanol) (03/06/18 02:34) Salicylates (Aspirin) (03/06/18 02:34) Tylenol (Acetaminophen) (03/06/18 02:34) Alprazolam (Xanax) (03/06/18 03:15) Diet Regular Basic (03/06/18 Breakfast) Alcohol Withdrawal Asmt-Ciwa ONCE (03/06/18 03:05) Ondansetron Odt (Zofran Odt) (03/06/18 03:15) Acetaminophen (Tylenol) (5/29/18 03:15) Flumazenil Inj (Romazicon Inj) (03/06/18 03:15) Lorazepam (Ativan) (03/06/18 03:15) Lorazepam Inj (Ativan Inj) (03/06/18 03:15) Lorazepam (Ativan) (03/06/18 03:15) Lorazepam Inj (Ativan Inj) (03/06/18 03:15) Lorazepam Inj (Ativan Inj) (03/06/18 03:15) Lorazepam Inj (Ativan Inj) (03/06/18 03:15) Results Vital Signs Date Time Temp Pulse Resp B/P (MAP) Pulse Ox O2 Delivery O2 Flow Rate FiO2 03/06/18 09:59 79 184/105 (131) 95 03/06/18 03:19 98.7 104 18 149/81 (103) 96 Laboratory Tests Test 03/06/18 02:15 White Blood Count 10.1 Red Blood Count 4.94 Hemoglobin 17.3 Hematocrit 48.1 Mean Corpuscular Volume 97.4 Mean Corpuscular Hemoglobin 35.0 Mean Corpuscular Hemoglobin Concent 36.0 Red Cell Distribution Width 13.9 Platelet Count 210 Mean Platelet Volume 9.4 Neutrophils (%) (Auto) 52.7 Lymphocytes (%) (Auto) 38.1 Monocytes (%) (Auto) 6.3 Eosinophils (%) (Auto) 2.1 Basophils (%) (Auto) 0.8 Neutrophils # (Auto) 5.3 Lymphocytes # (Auto) 3.9 Monocytes # (Auto) 0.6 Eosinophils # (Auto) 0.2 Basophils # (Auto) 0.1 CBC Comment AUTO DIFF Differential Comment AUTO DIFF CONFIRMED Blood Urea Nitrogen 22 Creatinine 1.39 Random Glucose 107 Total Protein 7.9 Albumin 3.6 Calcium Level 7.7 Alkaline Phosphatase 149 Aspartate Amino Transf (AST/SGOT) 243 Alanine Aminotransferase (ALT/SGPT) 181 Total Bilirubin 0.6 Sodium Level 142 Potassium Level 3.9 Chloride Level 104 Carbon Dioxide Level 20.6 Anion Gap 17 Estimat Glomerular Filtration Rate 53 Thyroid Stimulating Hormone 3rd Gen 1.510 Salicylates Level 3.4 Acetaminophen Level LESS THAN 2.0 Ethyl Alcohol Level 248 Diagnosis Primary Impression: Acute alcohol intoxication Additional Impression: Alcohol abuse with alcohol-induced mood disorder Psychiatrically Cleared: Yes Med/ Other Pt Specific Info: No Change to Meds Disposition: 01 DISCHARGE HOME Condition: Stable Problem Qualifiers Primary Impression: Acute alcohol intoxication Qualified Codes: F10.929 - Alcohol use, unspecified with intoxication, unspecified Autumn Alvarez March 06, 2018 11:57
== END 2018-03-06 12:22 | disposition home or self-care (01) ==
LOC: NEPD 02:04
DX: F10.129 Alcohol abuse with intoxication, unspecified (principal); F10.14 Alcohol abuse with alcohol-induced mood disorder; I10 Essential (primary) hypertension; F43.10 Post-traumatic stress disorder, unspecified; J44.9 Chronic obstructive pulmonary disease, unspecified; Z72.0 Tobacco use; N28.9 Disorder of kidney and ureter, unspecified; Z79.899 Other long term (current) drug therapy
CPT/HCPCS: 80053; 80307; 84443; 85025; 99284